=== PATIENT | female | born 1945 | race Caucasian/White ===

== ENCOUNTER 2024-07-30 14:05 | Emergency (ER) | payer OTHER, SELFPAY ==
[2024-07-30 14:15] VITALS: BP 145/96
[2024-07-30 14:37] LABS: % Basophils 0.3 % (0-2); % Immature Granulocytes 0.4 % (0-0.5); % Lymphocytes 31.4 % (20.5-51.1); % Monocytes 9.6 % (1.7-9.3); % Neutrophils 57.3 % (42.2-75.2); Absolute Eosinophils 0.1 10^3/uL (0-0.7); Absolute Lymphocytes 2.4 10^3/uL (1.2-3.4); Absolute Monocytes 0.7 10^3/uL (0.1-0.6); Absolute Neutrophils 4.4 10^3/uL (1.4-6.5); Hematocrit 41.5 % (37.0-47.0); Hemoglobin 13.8 g/dL (12.0-16.0); Mean Corp Hgb Conc. 33.3 g/dL (33.0-37.0); Mean Corpuscular Hgb 30.2 pg (27.0-31.0); Mean Corpuscular Volume 90.8 fL (81.0-99.0); Mean Platelet Volume 11.1 fL (7.4-10.4); Nucleated Red Blood Cells % 0 %; Platelet Count 135 10^3/uL (130-400); Red Blood Cell Count 4.57 10^6/uL (4.20-5.40); White Blood Cell Count 7.6 10^3/uL (4.8-10.8)
[2024-07-30 15:11] LABS: Blood Urea Nitrogen 18 mg/dl (7-17); Calcium 9.9 mg/dl (8.4-10.2); Carbon Dioxide 26 mmol/L (22-30); Chloride 99 mmol/L (98-107); Glucose 102 mg/dl (70-99); Lipase 238 U/L (23-300); Sodium 134 mmol/L (135-145); eGFR > 60.00
--- NOTE | 2024-07-30 16:35 | ED.GENMED ---
History of Present Illness
General
Chief Complaint: Abdominal Symptoms
Source: patient
Exam Limitations: none
Time Seen by Provider: 07/30/24 16:14
Nursing documentation reviewed up to this point in time: agreed with
History of Present Illness
History of Present Illness:
Patient to ED with complaint of lower abd. pain and cramping. States symptoms started approx 3 weeks ago intermittently but has become steady and worse. Denies fever/chills. No n/v. +diararhea. Brought self to ED for eval
Past History
Past History
ED Past Medical History: Arrthythmia (afib), HTN and Hypothyroidism
ED Past Surgical History: Appendectomy and Orthopedic
Social History
Tobacco: Non-smoker
Review of Systems
Review of Systems
Allergies reviewed?: Yes
All Other Systems: ROS reviewed and negative except as documented in HPI and ROS
Constitutional: Reports no symptoms
EENT: Reports no symptoms
Respiratory: Reports no symptoms
Cardiac: Reports no symptoms
ABD/GI: Reports abdominal pain (lower abd. pain and cramping, ) and diarrhea
: Reports no symptoms
Musculoskeletal: Reports no symptoms
Skin: Reports no symptoms
Neurological: Reports no symptoms
Psychiatric: Reports no symptoms
Phy Exam
General Physical Exam
General Presentation: well appearing and no apparent distress
General age: appears stated age
General Skin: warm and dry
General Habitus: normal
General Mental: alert
Cardiovascular Exam
Cardiovascular Exam: regular rate/rhythm and no edema
Gastrointestinal Exam
Gastrointestinal Exam: normal bowel sounds, soft, no organomegaly, no pulsatile mass and non distended
Palpation: generalized: Moderate tenderness
Musculoskeletal Exam
Musculoskeletal Exam: full ROM
Skin Exam
Skin Exam: normal color, warm/dry and no rash
Psychiatric Exam
Psychiatric Exam: normal mood/affect
Course
Orders/Labs/Results
Orders:
Orders
07/30/24 14:26
Basic Metabolic Panel Urgent
Complete Blood Count/With Diff Urgent
Lipase Urgent
07/30/24 16:35
CT Abd/pel W Iv And Oral Contr Urgent
Comment:
Reason For Exam: lower abd. pain
Iohexol [Omnipaque] See Protocol PO NOW STA
Abnormal Lab Results
07/30/24
14:26
MPV 11.1 H fL
(7.4-10.4)
Absolute Monos (auto) 0.7 H 10^3/uL
(0.1-0.6)
Monocytes % 9.6 H %
(1.7-9.3)
Sodium 134 L mmol/L
(135-145)
BUN 18 H mg/dl
(7-17)
Glucose 102 H mg/dl
(70-99)
07/30/24 14:26
07/30/24 14:26
Vital Signs
Initial and Last Documented VS:
Initial Vital Signs
Temp Pulse Resp BP Pulse Ox
97.6 F 91 16 145/96 98
07/30/24 14:15 07/30/24 14:15 07/30/24 14:15 07/30/24 14:15 07/30/24 14:15
Last Documented Vital Signs
Temp Pulse Resp BP Pulse Ox
97.6 F 94 15 162/88 99
07/30/24 19:18 07/30/24 21:19 07/30/24 21:19 07/30/24 21:19 07/30/24 21:19
*Radiology
Radiology exam reviewed: radiology read reviewed
*Pulse Oximetry
Patient hypoxic: no
*Critical Care Note
Total Time (30-74mins, 75-104mins- exclusive of procedures): Not Applicable
ED Attending Note
-
Portions of this chart may have been created with voice recognition software.� Occasional wrong word or��sound alike� substitutions may have occurred due to the inherent limitations of voice recognition software.
Discharge Plan
Departure
Patient Disposition: Home (Routine Discharge)
Date of Disposition: 07/30/24
Time of Disposition: 20:30
Patient with high blood pressure during this ER visit?: No
Condition: Good
Covid-19: Not Applicable
Discharge Problem:
Abdominal pain
Instructions: Abdominal Pain
Prescriptions:
No Action
losartan 50 MG tablet
50 mg PO DAILY
metoprolol tartrate 100 MG tablet
100 mg PO DAILY
levothyroxine 25 MCG tablet
25 mcg PO DAILY
digoxin [Digox] 125 MCG tablet
125 mcg PO MOWEFR
apixaban [Eliquis] 5 MG tablet
5 mg PO BID
multivitamin 1 EACH tablet
1 ea PO DAILY
docosahexaenoic acid-epa 1 CAP capsule
1 cap PO DAILY
Magnesium
1 dose PO DAILY
Vitamin C:
1 tab PO DAILY
Vitamin D3 (cholecalciferol):
1 tab PO DAILY
Zinc
1 tab PO DAILY
Referrals:
Masoud Wu MD [Active] - Next open appointment
Jennifer Bhat MD [Family Provider] -
Activity Restrictions/Additional Instructions:
Return to the emergency department immediately for any changes in/worsening of your symptoms
Interventions
Interventions:
*Risk Screen - Suicide Last Done: 07/30/24 14:15
*Neglect/Abuse Screening Last Done: 07/30/24 14:15
*Nursing Disposition Last Done: 07/30/24 21:20
BG-Hlnwta-Bfxqjwwren Assessment Last Done: 07/30/24 16:03
Discharge Date and Time
Discharge Date/Time: 07/30/24 21:21
Print Language: VIET[place]ESE
[2024-07-30] MEDS: OMNIPAQUE 50 ML PO (17:00)
[2024-07-30 19:18] VITALS: BP 160/87
[2024-07-30 21:19] VITALS: BP 162/88
== END 2024-07-30 21:21 | disposition home or self-care (01) ==
LOC: EMR 14:05
PROVIDERS: Student in an Organized Health Care Education/Training Program; EMERGENCY PHYSICIAN Emergency Medicine; FAMILY PHYSICIAN Internal Medicine
DX: R10.30 Lower abdominal pain, unspecified (principal); I10 Essential (primary) hypertension; E03.9 Hypothyroidism, unspecified
CPT/HCPCS: 99285; 74177; 80048; 83690; 85025; Q9967

== ENCOUNTER 2025-03-10 22:29 | Emergency (ER) | payer OTHER, SELFPAY ==
[2025-03-10 22:32] VITALS: BP 157/89
[2025-03-10 23:01] VITALS: BMI 26.6
--- NOTE | 2025-03-10 23:21 | ED.GENMED ---
History of Present Illness
General
Chief Complaint: Nose Bleed
Source: patient and family
Exam Limitations: none
Time Seen by Provider: 03/10/25 23:04
Nursing documentation reviewed up to this point in time: agreed with
History of Present Illness
History of Present Illness:
80-year-old female presenting to the emergency department concerns of right sided nostril nosebleed started about 2 hours ago when she was picking her nose. Denies any additional symptoms. Not currently on blood thinners. Was previously on
Eliquis up until a few months ago.
Past History
Past History
ED Past Medical History: Arrthythmia (afib), HTN and Hypothyroidism
ED Past Surgical History: Appendectomy and Orthopedic
Social History
Tobacco: Non-smoker
Review of Systems
Review of Systems
Allergies reviewed?: Yes
All Other Systems: ROS reviewed and negative except as documented in HPI and ROS
Phy Exam
Physical Exam
Physical Exam:
GENERAL: Alert , in no apparent distress
EYE: pupils equal and reactive
NECK: Supple, no significant adenopathy.
ENT: Slow bleed from the right-sided nasal septum. Small amount of blood in the posterior pharynx as well. o/p clr, mmm.
CARDIAC: Regular rate and rhythm .
LUNGS: Clear breath sounds bilaterally, no acute respiratory distress, no wheezes/rales/rhonchi
ABDOMEN: Soft, without focal tenderness, no r/g, no cvat
NEUROLOGICAL: Alert and oriented, no focal neuro deficits
SKIN: Warm and dry, skin intact.
MUSCULOSKELETAL: No edema, well perfused.
PSYCH: Normal and appropriate interaction.
Course
Vital Signs
Initial and Last Documented VS:
Initial Vital Signs
Temp Pulse Resp BP Pulse Ox
98.2 F 85 15 157/89 100
03/10/25 22:32 03/10/25 22:32 03/10/25 22:32 03/10/25 22:32 03/10/25 22:32
Last Documented Vital Signs
Temp Pulse Resp BP Pulse Ox
98.2 F 85 15 157/89 100
03/10/25 22:32 03/10/25 22:32 03/10/25 22:32 03/10/25 22:32 03/10/25 23:23
Procedures
Nosebleed
Drug treatment: Lidocaine and Epinephrine
Treatment: local pressure applied, Silver nitrate cautery and Merocel packing
Post treatment bleeding: other (Patient had ongoing bleeding despite silver nitrate. She was then packed by Merocel packing which control bleeding well.)
MDM/Problems Addressed
MDM/Problems Addressed:
80-year-old female presenting to the emergency department today with concerns of 2 hours of right sided nosebleed. An anterior nosebleed to the right side was identified. Lidocaine and epinephrine was applied to the area. Bleeding controlled at
that point silver nitrate was attempted but then bleeding recurred. Merisel packing was then placed which control bleeding well. Will follow-up closely with your ENT doctor. Return precautions given.
*Pulse Oximetry
SaO2: 100
Oxygen Mode of Delivery: Room air
Patient hypoxic: no (100)
*Critical Care Note
Total Time (30-74mins, 75-104mins- exclusive of procedures): Not Applicable
ED Attending Note
-
Portions of this chart may have been created with voice recognition software.� Occasional wrong word or��sound alike� substitutions may have occurred due to the inherent limitations of voice recognition software.
Discharge Plan
Departure
Patient Disposition: Home (Routine Discharge)
Date of Disposition: 03/11/25
Time of Disposition: 00:18
Patient with high blood pressure during this ER visit?: No
Condition: Good
Covid-19: Not Applicable
Discharge Problem:
Acute anterior epistaxis
Instructions: Nosebleeds (DC)
Prescriptions:
No Action
losartan 50 MG tablet
50 mg PO DAILY
metoprolol tartrate 100 MG tablet
100 mg PO DAILY
levothyroxine 25 MCG tablet
25 mcg PO DAILY
digoxin [Digox] 125 MCG tablet
125 mcg PO MOWEFR
apixaban [Eliquis] 5 MG tablet
5 mg PO BID
multivitamin 1 EACH tablet
1 ea PO DAILY
docosahexaenoic acid-epa 1 CAP capsule
1 cap PO DAILY
Magnesium
1 dose PO DAILY
Vitamin C:
1 tab PO DAILY
Vitamin D3 (cholecalciferol):
1 tab PO DAILY
Zinc
1 tab PO DAILY
Referrals:
Antelmo Long MD [Active, Otology]
Jennifer Bhat MD [Family Provider, Internal Medicine]
Activity Restrictions/Additional Instructions:
You came to the emergency department today with concerns of a nosebleed from your right nostril. Please leave the packing in place and follow-up with the nose doctor in 2 to 3 days. Return for any worsening, new or concerning symptoms.
Interventions
Interventions:
*Risk Screen - Suicide Last Done: 03/10/25 22:32
*General Assessment Last Done: 03/10/25 22:32
*Neglect/Abuse Screening Last Done: 03/10/25 22:32
*ED- Fall Risk Assessment Last Done: 03/10/25 23:01
*ED COVID-19 Vaccine History Last Done: 03/10/25 23:01
ED-EENT Assessment Last Done: 03/10/25 23:01
Discharge Date and Time
Print Language: TAMAZIGHT
[2025-03-11 00:33] VITALS: BP 152/98
== END 2025-03-11 00:35 | disposition home or self-care (01) ==
LOC: EMR 22:29
PROVIDERS: EMERGENCY PHYSICIAN Student in an Organized Health Care Education/Training Program; FAMILY PHYSICIAN Internal Medicine
DX: R04.0 Epistaxis (principal); E03.9 Hypothyroidism, unspecified; I48.91 Unspecified atrial fibrillation; I10 Essential (primary) hypertension; Z79.01 Long term (current) use of anticoagulants; Z90.49 Acquired absence of other specified parts of digestive tract
CPT/HCPCS: 99282; 30901

== ENCOUNTER 2025-03-15 03:40 | Emergency (ER) | payer OTHER, SELFPAY ==
--- NOTE | 2025-03-15 06:37 | ED.GENMED ---
History of Present Illness
General
Chief Complaint: Nose Bleed
Source: patient
Exam Limitations: none
Time Seen by Provider: 03/15/25 06:08
Nursing documentation reviewed up to this point in time: agreed with
History of Present Illness
History of Present Illness:
Patient is an 8-year-old female who presents to the ER for evaluation of nosebleed. Patient was seen here March 10 and had Mericel. She went to ENT yesterday they did remove the packing. She tried to apply some castor oil with a Q-tip because her
nose was dry and started bleeding again around 2 AM. She is supposed to be on Eliquis for A-fib. Her fine unhairer is in the [facility] however she stopped it because of the cost.
She denies any trauma headache blurry vision dizziness lightheadedness. Denies any recent fever chills or illness.
Past History
Past History
ED Past Medical History: Arrthythmia (afib), HTN and Hypothyroidism
ED Past Surgical History: Appendectomy and Orthopedic
Social History
Tobacco: Non-smoker
Phy Exam
General Physical Exam
General Presentation: no apparent distress
General age: appears stated age
General Skin: warm and dry
General Habitus: elderly
General Mental: alert
General Hydration: appears well hydrated
ENT Exam
ENT Exam: other ( + dried blood in right nares)
Cardiovascular Exam
Cardiovascular Exam: irregularly irregular
Pulmonary Exam
Pulmonary Exam: lungs clear and no respiratory distress
Neurological Exam
Neurological Exam: alert and oriented x3
Musculoskeletal Exam
Musculoskeletal Exam: full ROM
Skin Exam
Skin Exam: normal color and warm/dry
Psychiatric Exam
Psychiatric Exam: normal mood/affect
Course
Orders/Labs/Results
Orders:
Orders
03/15/25 04:51
Tranexamic Acid 1,000 mg .ROUTE .STK-MED ONE
Vital Signs
Initial and Last Documented VS:
Initial Vital Signs
Pulse Resp Pulse Ox
96 20 94
03/15/25 04:35 03/15/25 04:35 03/15/25 04:35
Last Documented Vital Signs
Pulse Resp BP Pulse Ox
72 15 120/61 95
03/15/25 07:00 03/15/25 07:00 03/15/25 07:00 03/15/25 07:00
Procedures
Nosebleed
Drug treatment: Neosynephrine
Treatment: other (Rapid Rhino)
Post treatment bleeding: none- good control
MDM/Problems Addressed
Differential Diagnosis Includes:
Not limited to epistaxis
MDM/Problems Addressed:
As documented patient is an 8-year-old female who was seen here on March 10 had a nosebleed had nasal packing removed by ENT yesterday but started bleeding again around 2 AM. This bleeding occurred after she put a Q-tip in her nose and try to
moisturize her nose with castor oil. Upon exam she had dried blood however after exam patient started bleeding with clotting. 4 point centimeter rapid Rhino was placed patient tolerated procedure well.
She is well-appearing she denies any lightheaded dizziness.
Will continue to monitor patient is supposed to on Eliquis for A-fib but stopped it because of the cost back in August. She is concerned that she is no longer on Eliquis and we did discuss risk of stroke. We initially talked about case management
however case management is not coming in for a while patient would like to go home. Patient was given a 30-day free trial of Eliquis coupon I did speak with pharmacy and instruct patient to call the [facility] as well. Because she has not
taken since August and has had 2 nosebleeds will have her hold off on restarting until seen by ENT in 2 days. I did however review the risks of not taking Eliquis with A-fib including stroke
Patient remained well-appearing with rapid Rhino in place with no further bleeding stable for discharge home. Family at bedside.
Chronic conditions affecting care:
afib( stopped Eliquis Aug 2024)
*Pulse Oximetry
SaO2: 95
Patient hypoxic: no
*Critical Care Note
Total Time (30-74mins, 75-104mins- exclusive of procedures): Not Applicable
Data Reviewed
Review of Other/Old Records Reveals: Other (previous ED visit )
Source: patient
ED Attending Note
-
Portions of this chart may have been created with voice recognition software.� Occasional wrong word or��sound alike� substitutions may have occurred due to the inherent limitations of voice recognition software.
Discharge Plan
Departure
Patient Disposition: Home (Routine Discharge)
Date of Disposition: 03/15/25
Time of Disposition: 07:48
Patient with high blood pressure during this ER visit?: No
Condition: Fair
Covid-19: Not Applicable
Discharge Problem:
Epistaxis
Instructions: Nosebleeds (DC)
Prescriptions:
No Action
losartan 50 MG tablet
50 mg PO DAILY
metoprolol tartrate 100 MG tablet
100 mg PO DAILY
levothyroxine 25 MCG tablet
25 mcg PO DAILY
digoxin [Digox] 125 MCG tablet
125 mcg PO MOWEFR
apixaban [Eliquis] 5 MG tablet
5 mg PO BID
multivitamin 1 EACH tablet
1 ea PO DAILY
docosahexaenoic acid-epa 1 CAP capsule
1 cap PO DAILY
Magnesium
1 dose PO DAILY
Vitamin C:
1 tab PO DAILY
Vitamin D3 (cholecalciferol):
1 tab PO DAILY
Zinc
1 tab PO DAILY
Referrals:
Antelmo Long MD [Active, Otology]
Jennifer Bhat MD [Family Provider, Internal Medicine]
Activity Restrictions/Additional Instructions:
As discussed keep packing in place in the next 2 days until seen and evaluated by ENT. Please call today to schedule appointment for for packing removal.
You were given a 30-day free supply coupon for Eliquis however with recent nosebleed and since you have not taken till August restart after speaking with ENT. Return if any worsening of symptoms
Interventions
Interventions:
*Risk Screen - Suicide Last Done: 03/15/25 03:44
*General Assessment Last Done: 03/15/25 03:44
*Neglect/Abuse Screening Last Done: 03/15/25 03:44
*ED- Fall Risk Assessment Last Done: 03/15/25 03:44
*ED COVID-19 Vaccine History Last Done: 03/15/25 03:44
ED-EENT Assessment Last Done: 03/15/25 05:15
Discharge Date and Time
Print Language: [place]ET[place]ESE
[2025-03-15 06:38] VITALS: BP 110/60
[2025-03-15 07:00] VITALS: BP 120/61
== END 2025-03-15 08:07 | disposition home or self-care (01) ==
LOC: EMR 03:40
PROVIDERS: EMERGENCY PHYSICIAN Emergency Medicine; FAMILY PHYSICIAN Internal Medicine
DX: R04.0 Epistaxis (principal); I48.91 Unspecified atrial fibrillation; I10 Essential (primary) hypertension; E03.9 Hypothyroidism, unspecified; F41.9 Anxiety disorder, unspecified; M19.90 Unspecified osteoarthritis, unspecified site; Z96.643 Presence of artificial hip joint, bilateral; Z91.018 Allergy to other foods; Z91.048 Other nonmedicinal substance allergy status
CPT/HCPCS: 99283; 30901

== ENCOUNTER 2025-07-08 01:46 | Inpatient (IN) | payer OTHER, SELFPAY ==
[2025-07-07] VITALS (9 sets, daily range): BP systolic 133–173; BP diastolic 96–139
[2025-07-07 19:35] LABS: Hematocrit 38.0 % (37.0-47.0); Hemoglobin 12.9 g/dL (12.0-16.0); Mean Corp Hgb Conc. 33.9 g/dL (33.0-37.0); Mean Corpuscular Volume 82.8 fL (81.0-99.0); Nucleated Red Blood Cells % 0 %; Platelet Count 163 10^3/uL (130-400); Red Cell Dist. Width 13.4 % (11.5-14.5)
[2025-07-07 19:59] LABS: ALT (SGPT) 17 U/L (0-35); AST (SGOT) 21 U/L (14-36); Albumin 4.3 g/dl (3.5-5.0); Alkaline Phosphatase 91 U/L (38-126); Blood Urea Nitrogen 15 mg/dl (7-17); Calcium 9.5 mg/dl (8.4-10.2); Carbon Dioxide 24 mmol/L (22-30); Chloride 95 mmol/L (98-107); Glucose 146 mg/dl (70-99); Potassium 4.9 mmol/L (3.5-5.1); Sodium 128 mmol/L (135-145); Total Protein 7.5 g/dl (6.3-8.2); eGFR > 60.00
--- NOTE | 2025-07-07 20:00 | EDRN ---
Patient ambulated to the restroom and back in bed, ambulated without difficulty.
[2025-07-07 20:13] LABS: Troponin I 0.075 ng/ml
[2025-07-07 20:23] LABS: Urine Character Clear (Clear)
[2025-07-07 20:33] LABS: Urine Squamous Cell >30 /LPF (Few)
[2025-07-07 22:40] LABS: Troponin I 0.289 ng/ml
--- NOTE | 2025-07-07 23:07 | EDRN ---
Dr. Larkin at bedside talking with patient and family about results and a plan
--- NOTE | 2025-07-07 23:13 | ED.GENMED ---
History of Present Illness
General
Chief Complaint: Dizziness
Source: patient and family
Exam Limitations: none
Time Seen by Provider: 07/07/25 19:01
History of Present Illness
History of Present Illness:
Note:
CHIEF COMPLAINT(S)
Feeling unstable and off balance.
HISTORY OF PRESENT ILLNESS
The patient is an 80-year-old female with a history of atrial fibrillation (AFib), hypertension, and thyroid disorder (hypothyroidism, evidenced by elevated thyroid-stimulating hormone levels) who presented with a sensation of being off balance,
described as if she were intoxicated, although she had not consumed alcohol. This symptom began around 1:00 PM and had never been experienced before by the patient. The patient states she then took her blood pressure at home and it was noted to be
elevated. The patient's daughter states that the blood pressure at home was at one point 200/100. she reports a previous history of elevated blood pressure and recent fluctuations in her thyroid medication. The patient has felt heart palpitations
and is aware of having a leaking heart valve, although the specific valve was not identified. She is currently in atrial fibrillation. She also reported experiencing a fever peaking at 101�F on Friday with upper respiratory infection symptoms that
have resolved. She has had no recent headaches, chest pain, weakness, or urinary symptoms. She denies shortness of breath. She does report feeling clammy in her hands
PAST MEDICAL AND SURGICAL HISTORY
- Atrial fibrillation
- Hypertension
- Hypothyroidism
CHRONIC MEDICAL CONDITIONS SIGNIFICANTLY AFFECTING CARE
- Atrial fibrillation
- Hypertension
- Hypothyroidism
MEDICATIONS
- Thyroid medication (with recent adjustments)
- Losartan for blood pressure
- Sotalol
REVIEW OF SYSTEMS
- Cardiovascular: Reports feeling of heart palpitations, currently in atrial fibrillation.
- Neurological: Reports a sensation of being off balance.
- Constitutional: Reported fever recently, with a temperature of 101�F on Friday.
- Genitourinary: No urinary complaints.
PHYSICAL EXAM
General: Alert, no acute distress.
Skin: Warm, dry.
Head: Normocephalic, atraumatic.
Neck: Supple, trachea midline.
Eye, Ears, Nose, Mouth, and Throat: Oral mucosa moist. Pupils equal, round, and reactive to light.
Cardiovascular: Irregularly irregular heart rhythm at a rate of 80 bpm. Blood pressure 169/106 mmHg.
Respiratory: Respirations are non-labored.
Gastrointestinal: Abdomen nondistended.
Back: Normal range of motion, normal alignment.
Musculoskeletal: Normal range of motion, normal strength. General motor function and coordination normal as evidenced by [id number] and rqwe-hh-[id number] tests. No pronator drift noted.
Neurological: Alert and oriented to person, place, time, and situation.
Psychiatric: Cooperative, appropriate mood and affect.
PLAN
- Check laboratory tests including a complete metabolic panel, cardiac enzymes, and thyroid function tests.
- Urinalysis to rule out infection.
- Imaging including chest X-ray and head CT scan to rule out pulmonary and neurological causes.
- Monitor blood pressure frequently, approximately every 15 to 30 minutes, and manage as needed.
- Re-evaluate after lab and imaging results.
DIFFERENTIAL DIAGNOSIS
The Differential Diagnosis includes, in no particular order and is not limited to:
- Cerebrovascular accident (stroke)
- Transient ischemic attack
-Hypertensive emergency
-Rapid A-fib
- Labyrinthitis
- Vestibular neuritis
- Hypertensive encephalopathy
- Thyrotoxicosis
- Electrolyte imbalance
- Cardiac arrhythmia-related dizziness
- Acute infection leading to fever and disorientation
- Medication side effect
CARE-UPDATE
07/07/25 - 23:14
Patient reports feeling more at ease, with no chest pain or discomfort noted. Initial troponin levels showed elevation from 0.075 to 0.289. EKG remains stable with no indication of myocardial infarction by EKG despite elevated troponin levels. Blood
pressure was elevated during the discussion, initially and now at 133/97. Plan includes monitoring of serial troponin levels, blood pressure management, and administration of full-dose aspirin for precautionary measures. Consideration for further
cardiovascular evaluation, potentially including echocardiography.. Discussion addressed the patients anxiety regarding the situation, ensuring continued reassurance and explaining that current elevated markers dont equate to acute coronary syndrome
without corresponding clinical symptoms.
Disposition:
SUMMARY OF ENCOUNTER
The patient, an 80-year-old female with a history of atrial fibrillation, presented with a sensation of being unstable. Upon reassessment, she denied chest or back pain. She experienced a viral syndrome earlier in the week and reported elevated
blood pressure at home, though the duration was unclear. Emergency department workup showed a normal complete blood count, mild hyponatremia at 128, and elevated troponin levels with an initial measurement of 0.075 rising to 0.289 after three hours.
She is no longer taking digoxin. Despite these findings, she continued to deny experiencing chest pain. Differential considerations include atypical acute coronary syndrome symptoms, rapid atrial fibrillation episodes, or uncontrolled
hypertension. Aspirin was administered, and the patient was treated with intravenous metoprolol to manage blood pressure spikes.
Bedside ultrasound shows no pericardial effusion
PLAN
Continue trending troponin levels and conduct cardiology evaluation. The patients management includes administration of a single dose of aspirin and intravenous labetalol for blood pressure management.
INDEPENDENT REVIEW OF LABS AND INTERPRETATION OF TESTS
My independent review of the complete blood count is normal. My independent review indicates mild hyponatremia with a sodium level of 128. My independent review shows elevated troponin levels, initially 0.075, rising to 0.289 after three hours. My
independent review of EKG indicates no ischemia.
MEDICATION RECONCILIATION
Administered aspirin and intravenous labetalol in the emergency department.
MEDICAL DECISION MAKING
- Number and Complexity of Problems Addressed: Chronic conditions affecting care are atrial fibrillation, hypertension, and hypothyroidism. Differential diagnosis includes cerebrovascular accident (stroke), transient ischemic attack, labyrinthitis,
vestibular neuritis, hypertensive encephalopathy, thyrotoxicosis, electrolyte imbalance, cardiac arrhythmia-related dizziness, acute infection leading to fever and disorientation, medication side effect.
- Data:
- Category 1: Tests reviewed include a complete blood count, sodium level, and troponin levels. My independent interpretation of the repeat EKG shows no ischemia.
- Category 3: Discussion of management included cardiology evaluation.
- Risk: Prescription medication was prescribed: aspirin and labetalol for BP management.
DIAGNOSIS
- Atrial fibrillation, unspecified (I48.91)
- Primary hypertension (I10)
- Hypothyroidism, unspecified (E03.9)
- Elevated troponin levels, unspecified (R74.8)
- Mild hyponatremia (E87.1)
Past History
Past History
ED Past Medical History: Arrthythmia (afib), HTN and Hypothyroidism
ED Past Surgical History: Appendectomy and Orthopedic
Social History
Tobacco: Non-smoker
Phy Exam
Physical Exam
Physical Exam:
.
Course
Orders/Labs/Results
Orders:
Orders
07/07/25 19:02
Electrocardiogram (*1) Urgent
Reason for Study: Fatigue / Weakness
EKG- Treatment ONCE
07/07/25 19:19
Complete Blood Count/With Diff Urgent
Comprehensive Metabolic Panel Urgent
Digoxin Urgent
Comment: ADD ON
Troponin I Urgent
07/07/25 19:30
CT Head W/o Iv Contrast Urgent
Comment:
Reason For Exam: dizziness, on eliquis
CR Chest - 2 Views Urgent
Comment:
Reason For Exam: dizziness, recent fever
07/07/25 20:15
Urinalysis Reflex To Culture Urgent
Date Specimen was Collected: 07/07/25
Time Specimen was Collected: 20:13
Urine Microscopic Reflex Cult Urgent
Urine Culture Urgent
ANDREA Source: U
Specimen Description:
Date Specimen was Collected: 07/07/25
Time Specimen was Collected: 20:13
07/07/25 21:50
NT-proBNP Urgent
Comment: ADD ON
Troponin I Urgent
07/07/25 22:28
Add On- LAB Urgent
Tests Added?: dig level
07/07/25 22:45
Electrocardiogram (*1) Urgent
Reason for Study: Fatigue / Weakness
EKG- Treatment ONCE
07/07/25 23:13
Aspirin 325 mg PO NOW STA
Metoprolol [Lopressor] 5 mg IV NOW STA
07/07/25 23:28
Add On- LAB Urgent
Tests Added?: bnp
Abnormal Lab Results
07/07/25 07/07/25 07/07/25
19:19 20:15 21:50
Absolute Monos (auto) 0.7 H 10^3/uL
(0.1-0.6)
Sodium 128 L mmol/L
(135-145)
Chloride 95 L mmol/L
(98-107)
Glucose 146 H mg/dl
(70-99)
Troponin I 0.075 H* ng/ml 0.289 H* D ng/ml
Leukocyte Esterase Rfl 1+ A
(Negative)
Urine RBC 3-6 A /HPF
(0-2)
Urine Bacteria (Reflex) Many A
(Negative)
Urine Albumin (Reflex) 1+ A
(Neg - Trace)
Digoxin < 0.4 L ng/ml
(0.8-2.0)
07/07/25 19:19
07/07/25 19:19
Vital Signs
Initial and Last Documented VS:
Initial Vital Signs
Temp Pulse Resp BP Pulse Ox
97.4 F 86 18 173/107 100
07/07/25 18:45 07/07/25 18:45 07/07/25 18:45 07/07/25 18:45 07/07/25 18:45
Last Documented Vital Signs
Temp Pulse Resp BP Pulse Ox
97.4 F 83 15 143/91 94
07/07/25 18:45 07/08/25 00:00 07/08/25 00:00 07/08/25 00:00 07/08/25 00:00
*Pulse Oximetry
SaO2: 94
Oxygen Mode of Delivery: Room air
Patient hypoxic: no
*Critical Care Note
Total Time (30-74mins, 75-104mins- exclusive of procedures): Not Applicable
Update Note
Update Note:
Blood pressure improved. Continue to monitor
ED Attending Note
-
Portions of this chart may have been created with voice recognition software.� Occasional wrong word or��sound alike� substitutions may have occurred due to the inherent limitations of voice recognition software.
Discharge Plan
Departure
Patient Disposition: Admit
Date of Disposition: 07/07/25
Time of Disposition: 23:19
Admit to: Telemetry
Presentation/result/management discussed w/ accepting MD/DO: Hospitalist
Discharge Problem:
Elevated troponin, Uncontrolled hypertension, Atrial fibrillation
Prescriptions:
No Action
losartan 50 MG tablet
100 mg PO DAILY
metoprolol tartrate 100 MG tablet
100 mg PO DAILY
levothyroxine 25 MCG tablet
25 mcg PO DAILY
Eliquis 5 MG tablet
5 mg PO BID
multivitamin 1 EACH tablet
1 ea PO DAILY
Magnesium
1 dose PO DAILY
Vitamin C:
1 tab PO DAILY
Vitamin D3 (cholecalciferol):
1 tab PO DAILY
Zinc
1 tab PO DAILY
biotin 5 mg Tablet
5 mg PO DAILY
Referrals:
Jennifer Bhat MD [Family Provider, Internal Medicine]
Interventions
Interventions:
*Risk Screen - Suicide Last Done: 07/07/25 18:45
*General Assessment Last Done: 07/07/25 18:45
*ED COVID-19 Vaccine History Last Done: 07/07/25 18:45
*ED Influenza Vaccine History Last Done: 07/07/25 18:45
ED- Neurological Assessment Last Done: 07/07/25 19:30
ED- Cardiac Assessment Last Done: 07/07/25 19:30
ED Swallowing Screen Last Done: 07/07/25 22:11
Discharge Date and Time
Print Language: HUNGARIAN
[2025-07-07 23:14] LABS: Digoxin < 0.4 ng/ml (0.8-2.0)
[2025-07-07] MEDS: ASPIRIN 325 MG PO (23:22)
[2025-07-07] MEDS: LOPRESSOR 5 MG IV (23:22)
[2025-07-08] VITALS (9 sets, daily range): BP systolic 93–168; BP diastolic 46–106; BMI 25.9
--- NOTE | 2025-07-08 01:10 | HPS.HSE ---
Family Physician
-
Family Physician: Jennifer Bhat MD
Chief Complaint
-
Unsteady, Elevated BP
History of Present Illness
Patient is an 80y F with PMH significant for A-Fib, hypertension and hypothyroidism who presents to ED complaining of dizziness / unsteadiness and elevated BP. Patient states that she developed sense of unsteady gait / feeling lightheaded around
1 PM today. She checked her BP and noted that it was very high (> 180 systolic) at home. Patient also reported 'heavy' or 'pounding' heartbeat. She denies any chest pain or pressure. She denies any SOB. With persistent lightheaded sensation and
persistent BP elevation, patient presented to the ED for further evaluation.
In the ED, patient was initially quite hypertensive with BP = 170/100. She is in A-Fib with controlled ventricular rates.
Patient states that she felt ill starting one week ago. She describes shaking chills at that time with temperature at home to 101. She slept for most of the weekend and only began to feel better over the past 2 days.
Mild cough. No sore throat. No GI or complaints. No known sick contacts.
Medical History
Past Medical History
Past Medical History: Reports Other
Additional Past Medical History:
Permanent Atrial Fibrillation
Hypertension
Chronic Sinusitis
Varicose Veins
Hypothyroidism
Past Surgical History: Reports Other
Additional Past Surgical History:
Appendectomy
Sinus Surgery
Hip Hemiarthroplasty
Social History
Tobacco: Non-smoker
Alcohol: None
Drug: None
Family History
Family History: Not pertinent
Allergies / Home Medications
Allergies reflects when Allergies were last updated in [facility].
Home Medications with original date entered in [facility]
Allergy/Medication List:
Allergies
Allergy/AdvReac Type Severity Reaction Status Date / Time
honey Allergy Swelling Verified 07/07/25 18:49
peach Allergy abdominal Verified 07/07/25 18:49
pain
pollen extracts Allergy congestion Verified 07/07/25 18:49
Home Medications
Magnesium 1 dose PO DAILY 10/25/21
Vitamin C: 1 tab PO DAILY 10/25/21
Vitamin D3 (cholecalciferol): 1 tab PO DAILY 10/25/21
Zinc 1 tab PO DAILY 10/25/21
apixaban 5 mg tablet (Eliquis) 5 mg PO BID 10/25/21
levothyroxine 25 mcg tablet 25 mcg PO DAILY 10/25/21
multivitamin 1 ea PO DAILY 10/25/21
biotin 5 mg tablet 5 mg PO DAILY 07/07/25
losartan 100 mg tablet 100 mg PO DAILY 07/08/25
metoprolol succinate 100 mg tablet,extended release 24 hr 100 mg PO HS 07/08/25
Review of Systems
-
History Source: Patient
A 12 point ROS was completed and negative except as noted: Yes
Constitutional: Reports Fatigue; Denies Fever or Chills
EENT: Denies Sore Throat
Respiratory: Denies Cough, Hemoptysis or Trouble Breathing
Cardiac: Reports Palpitations; Denies Chest Pain, Diaphoresis or Syncope
Abdomen/GI: Denies Abdominal Pain, Nausea, Vomiting or Diarrhea
: Denies Dysuria, Frequency or Flank Pain
Musculoskeletal: Reports Edema; Denies Joint Pain
Neurological: Reports Dizzy; Denies Headache, Weakness or Numbness
Psych: Denies Depression or Anxiety
Physical Exam
Vital Signs
Vital Signs
Temp Pulse Resp BP Pulse Ox
97.4 F 83 15 143/91 94
07/07/25 18:45 07/08/25 00:00 07/08/25 00:00 07/08/25 00:00 07/08/25 00:00
Physical Exam
General: Other (80y F in no acute distress.)
HEENT: Moist mucous membranes, PERRLA and Other (No JVD / HJR)
Respiratory: Other (Bilateral rales - all the way up on the L and about 1/3 on the R.)
Cardiac: S1/S2, Irregular Rhythm and Murmur (II/ MAYRA)
GI: Soft, Non Tender, Non Distended and Normal Bowel Sounds
Musculoskeletal: No Clubbing, No Cyanosis and Other (2+ pitting edema - LLE > RLE. Varicose veins.)
Neuro: AO x 3
Laboratory Results
-
07/07/25 19:19
07/07/25 19:19
Laboratory Results
Total Bilirubin 0.6 mg/dl (0.2-1.3) 07/07/25 19:19
AST 21 U/L (14-36) 07/07/25 19:19
ALT 17 U/L (0-35) 07/07/25 19:19
Alkaline Phosphatase 91 U/L (38-126) 07/07/25 19:19
Troponin I 0.289 ng/ml H* D 07/07/25 21:50
Impression/Plan
-
A/P: Patient is an 80y F with PMH significant for A-Fib and hypertension who presents to ED complaining of palpitations, elevated BP and feeling off-balance.
Acute HF - Unknown Type
- Admit for further evaluation and treatment.
- Patient with bilateral rales, increased pulm vasculature on CXR and new / worse LE edema (per her).
- IV Lasix now and BID.
- Follow I/Os, daily weights, etc.
- Check Echo.
- Cardiology evaluation for additional recommendations.
- Follow for improvement in BP, symptoms, etc.
- Check COVID / flu status given recent febrile illness - presentation may also be consistent with viral pneumonia.
ACS / Abnormal Troponin
- Elevated troponin - ? secondary to CHF v ACS. Doubt related to A-Fib as this is rate-controlled at present.
- Begin IV heparin for now and follow troponin to peak.
- Follow for any new / worsening symptoms.
- Continue ASA daily. Add statin.
- Cardiology consulted as noted above.
Permanent Atrial Fibrillation
- Stable. Currently rate -controlled.
- Continue Toprol. Hold Eliquis and resume once heparin discontinued.
Benign Hypertension
- Uncontrolled at present - likely secondary to CHF.
- Follow for improvement with diuresis.
- Adjust medications as needed for adequate control.
Hyponatremia
- Acute on chronic according to prior labs.
- Suspect due to volume overload as noted above.
- Follow for improvement with diuresis.
- Fluid restriction when diet started.
Hypothyroidism
- Recent trial off of T4 supplementation. TSH elevated and levothyroxine was restarted.
- Continue T4. Update TFTs.
DVT Prophylaxis: IV heparin for now.
Code Status: Full
[2025-07-08] MEDS: LASIX 40 MG IV ×2 (01:28→08:21)
[2025-07-08 01:39] LABS: COVID-19 Antigen Negative (Negative)
[2025-07-08 02:07] LABS: APTT 37.1 Sec (23.4-35.0)
--- NOTE | 2025-07-08 02:36 | PTCARENOTE ---
Recieved pt. from ED. Pt. ambulated from the stretcher to the room. Pt. AAOx4. Pt. oriented to unit and call marshall placed within reach. Pt. care ongoing.
[2025-07-08 03:00] LABS: Hematocrit 41.0 % (37.0-47.0); Hemoglobin 13.8 g/dL (12.0-16.0); Mean Corp Hgb Conc. 33.7 g/dL (33.0-37.0); Mean Corpuscular Volume 83.5 fL (81.0-99.0); Platelet Count 185 10^3/uL (130-400); Red Cell Dist. Width 13.3 % (11.5-14.5)
[2025-07-08] MEDS: HEPARIN 25000 UNITS/250 ML IV (03:07)
[2025-07-08 03:14] LABS: Blood Urea Nitrogen 14 mg/dl (7-17); Calcium 9.8 mg/dl (8.4-10.2); Carbon Dioxide 25 mmol/L (22-30); Chloride 94 mmol/L (98-107); Estimated Creatinine Clearance 44 ml/min; Glucose 117 mg/dl (70-99); HDL Cholesterol 43 mg/dl; LDL Cholesterol, Calculated 116 mg/dl; Potassium 4.6 mmol/L (3.5-5.1); Sodium 128 mmol/L (135-145); Very Low Density Lipoprotein 14 mg/dl (0-30); eGFR > 60.00
[2025-07-08 03:38] LABS: Troponin I 0.546 ng/ml
[2025-07-08 03:40] LABS: APTT 36.6 Sec (23.4-35.0)
[2025-07-08] MEDS: SYNTHROID 25 MCG PO (05:29)
[2025-07-08] MEDS: COZAAR 100 MG PO (08:22)
[2025-07-08] MEDS: LOW STRENGTH ASPIRIN 81 MG PO (08:22)
[2025-07-08] MEDS: TOPROL XL 50 MG PO (08:22)
[2025-07-08 08:51] LABS: Glycohemoglobin (HgbA1c) 6.3 % (4.0-5.9)
[2025-07-08 08:58] LABS: APTT 87.1 Sec (23.4-35.0)
[2025-07-08 09:14] LABS: Troponin I 0.460 ng/ml
--- NOTE | 2025-07-08 09:46 | CON.CAR ---
Addendum entered and electronically signed by Juan Villafuerte MD 07/08/25 12:10:
I saw and examined the patient.
The Film Splicer's note was reviewed and I agree with the note.
Comment: Briefly, 80-year-old woman past medical history of heart failure with preserved ejection fraction and permanent atrial fibrillation who presents for evaluation of lightheadedness and dizziness. She was found to have severe range blood
pressures and elevated troponin in the ER and was admitted for further management.
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
Echo here shows moderate to severely reduced LV systolic function with EF 30%
Patient was not on standing diuretic as an outpatient
Plan for IV diuresis�follow renal function/electrolytes and daily weights
-Elevated troponin: Troponin trend 0.075�0.289�0.546�0.460
Not reporting any chest discomfort to me
ECG does not appear acutely ischemic
Would medically manage for presumed CAD with aspirin, high intensity statin, beta-darrel and heparin drip
Given newly reduced LVEF recommend invasive coronary angiography prior to discharge�tentatively Wednesday 07/11
-Atrial fibrillation: This is reportedly permanent
Continue metoprolol for rate control
Heparin for risk reduction of cardioembolic stroke
Given her initial presentation with dizziness would consider further workup for possible TIA/CVA -initial CT head within normal limits
Original Note:
Consultation
Consultation Request
Date/Time Consultation Requested: 07/08/2025
Date/Time Consultation Performed: 07/08/2025
Requesting Provider: Dr. Whitaker
Performing Provider: Sherry Lopez PA-C for Dr. Villafuerte
Reason for Consultation: Elevated troponin, CHF
Medical History
-
History of Present Illness:
HPI: Yoko is an 80 year old female with PMH of permanent atrial fibrillation, chronic HFpEF, hypertension, and hypothyroidism who presented to [facility] ER for evaluation after she had an episode of lightheadedness/unsteady gait earlier in the day. She
then noted pounding in her chest and checked her BP and it was significantly elevated. She came to ER for evaluation and was noted to be significantly hypertensive and possibly in some heart failure. In ER, troponin was mildly elevated at 0.75 and
trended up to 0.546. She has been chest pain free, but describes feeling as though her blood pressure is elevated with pounding in her chest. No shortness of breath, but does have some LE edema. No weakness/vision changes. Head CT without acute
intracranial abnormality. Chest xray showed evidence of increased venous pressures. In rate controlled atrial fibrillation on EKG. She was started on IV lasix and admitted for further workup and cardiology consulted for evaluation.
PMH:
Permanent atrial fibrillation
Chronic HFpEF
HTN
Hypothyroidism
Past Medical History
Past Medical History: Other (In [place])
Past Surgical History: Appendectomy and Orthopedic
Social History
Tobacco: Non-Smoker
Alcohol: None
Drug: None
Family History
Family History: Hypertension
Allergies / Home Medications
Allergy/AdvReac Type Severity Reaction Status Date / Time
honey Allergy Swelling Verified 07/07/25 18:49
peach Allergy abdominal Verified 07/07/25 18:49
pain
pollen extracts Allergy congestion Verified 07/07/25 18:49
�Medication �Instructions �Recorded �Confirmed �Type
Magnesium 1 dose PO DAILY 10/25/21 07/07/25 History
Vitamin C: 1 tab PO DAILY 10/25/21 07/07/25 History
Vitamin D3 (cholecalciferol): 1 tab PO DAILY 10/25/21 07/07/25 History
Zinc 1 tab PO DAILY 10/25/21 07/07/25 History
apixaban 5 mg tablet (Eliquis) 5 mg PO BID 10/25/21 07/07/25 History
levothyroxine 25 mcg tablet 25 mcg PO DAILY 10/25/21 07/07/25 History
multivitamin 1 ea PO DAILY 10/25/21 07/07/25 History
biotin 5 mg tablet 5 mg PO DAILY 07/07/25 07/07/25 History
losartan 100 mg tablet 100 mg PO DAILY 07/08/25 07/08/25 History
metoprolol succinate 100 mg 100 mg PO HS 07/08/25 07/08/25 History
tablet,extended release 24 hr
Review of Systems
-
History Source: Patient
All other systems: Negative unless noted
Physical Exam
Vital Signs
Temp Pulse Resp BP Pulse Ox
97.9 F 105 18 168/104 95
07/08/25 07:20 07/08/25 07:20 07/08/25 07:20 07/08/25 07:20 07/08/25 07:20
Lab Results
07/08/25 02:52
07/08/25 02:52
Troponin I 0.460 ng/ml H* 07/08/25 08:40
Nlt-C-Nwezknsxhmv Pept 1260 pg/ml 07/07/25 21:50
Physical Exam
General: Well Developed, Well Nourished and No Apparent Distress
HEENT: Normocephalic, Anicteric and Moist Mucous Membranes
Respiratory: Clear and Non Labored Respirations
Cardiac: S1/S2 and Irregular Rhythm
Musculoskeletal: No Clubbing, No Cyanosis and Edema
Skin: Warm and Dry
Neuro: AO x 3 and Nonfocal/Grossly Intact
Psych: Calm
Impression / Plan
-
PCP: Dr. Bhat
Application Integration Engineer: Dr. Albert Harrison ([facility])
Impression:
Presented with dizziness, unsteady gait, pounding heart
HTN urgency
Elevated troponin
Acute on chronic HFpEF
Permanent atrial fibrillation
HTN
Hypothyroidism
Nuclear stress test 2020: No evidence of ischemia.
Echo 10/04/2024: EF 60-65%, mild MR, moderate MD, moderate to severe TR
Echo 07/08/2025: Study completed, report pending.
Plan:
-Presented with dizziness, unsteady gait, and pounding heart beat. Admitted with hypertensive urgency and acute heart failure.
-Diuresing with IV lasix 40mg BID. Per prior OP cardiology note, had recommended she take diuretic but patient had refused.
-Creat stable at 0.8. Follow w/ diuresis.
-Follow daily weights, I&Os. Weight 141 lbs 07/08.
-K stable at 4.6. Na 128. Continue to follow w/ diuresis.
-Echo 09/2024 w/ preserved EF, moderate to severe TR. Had discussed TVR as OP, but plan was to follow at the time.
-Repeat echo today completed, await official report. Prelim w/ reduced EF.
-Remains in permanent atrial fibrillation.
-Per OP note, has not been complaint with OAC as OP.
-Troponin elevation noted, peak 0.546, trending down thereafter. Continue IV heparin for now.
-No chest pain currently. Would likely plan on [facility] this admission following diuresis. Possibly Friday, 07/11.
-Continue aspirin 81mg daily.
-BP elevated significantly on arrival, remains elevated currently. On losartan 100mg daily and Toprol 50mg BID. Will increase toprol to 100mg BID and follow w/ diuresis.
-Given dizziness/unsteady gait w/ significant HTN, Head CT checked in ER. No acute intracranial abnormalities noted. As she has permanent atrial fibrillation and has been noncompliant with Eliquis, would consider brain MRI to assess for CVA.
-LDL 116. On Lipitor 40mg daily, new this admission.
-Hgb A1c 6.3%.
-Requested and reviewed prior cardiology records.
HPI: Yoko is an 80 year old female with PMH of permanent atrial fibrillation, hypertension, and hypothyroidism who presented to [facility] ER for evaluation after she had an episode of lightheadedness/unsteady gait earlier in the day. She then noted
pounding in her chest and checked her BP and it was significantly elevated. She came to ER for evaluation and was noted to be significantly hypertensive and possibly in some heart failure. In ER, troponin was mildly elevated at 0.75 and trended up
to 0.546. She has been chest pain free, but describes feeling as though her blood pressure is elevated with pounding in her chest. No shortness of breath, but does have some LE edema. No weakness/vision changes. Head CT without acute intracranial
abnormality. Chest xray showed evidence of increased venous pressures. In rate controlled atrial fibrillation on EKG. She was started on IV lasix and admitted for further workup and cardiology consulted for evaluation.
Data Reviewed
-
EKG: Tracing Personally Visualized and interpreted
Radiology: Report Reviewed by me
CT Scan: Report Reviewed by me
Labs: Labs Reviewed by me
Old Records: Requested and Reviewed
[2025-07-08] MEDS: APRESOLINE 5 MG IV (11:53)
--- NOTE | 2025-07-08 13:19 | W.PN.UPDATE ---
Update Note
Progress Note Update
nstemi
hep gtt
asa statin
bb
ischemic eval with [facility] on Friday
acute hfref, new, nyha class iii
iv diuretics
monitor uop
dialy weight
follow renal function
keep k >4
keep mg >2
tele monitor
permanent afib
bb
hep gtt
hypontremia
likely related to volume overload
fluid restrict
expect to improve with diuretics
hypothyrodisim
continue levothyroxine
--- NOTE | 2025-07-08 14:04 | CM ---
CM following re: discharge planning.
Reviewed pt's chart, met with pt.
Pt is an 80 year old female, admitted with primary dx of Acute HF.
Pt reports she was born and grew up in [place], resides with son and his family in a 2SH, 1 step to enter. Pt reports her and another son , emotional support offered and provided. Pt described herself as independent in all areas
[employer]. No DME, VN or SNF history.
D/C plan: home with no needs anticipated vs cardiac outpatient rehab if indicated
CM will follow with discharge plan updates as hospitalization progresses
[2025-07-08] MEDS: LASIX IV (16:08)
[2025-07-08 16:11] LABS: APTT 91.2 Sec (23.4-35.0)
[2025-07-08] MEDS: LIPITOR 40 MG PO (18:04)
[2025-07-08] MEDS: TOPROL XL 100 MG PO (21:10)
[2025-07-09 03:19] VITALS: BP 104/60
[2025-07-09] MEDS: HEPARIN 25000 UNITS/250 ML IV (05:23)
[2025-07-09] MEDS: SYNTHROID 25 MCG PO ×2 (05:30→13:40)
[2025-07-09 06:00] VITALS: BMI 25.6
[2025-07-09 07:10] LABS: Hematocrit 35.3 % (37.0-47.0); Hemoglobin 12.2 g/dL (12.0-16.0); Mean Corp Hgb Conc. 34.6 g/dL (33.0-37.0); Mean Corpuscular Volume 81.5 fL (81.0-99.0); Platelet Count 189 10^3/uL (130-400); Red Cell Dist. Width 13.3 % (11.5-14.5)
[2025-07-09 07:17] LABS: APTT 97.4 Sec (23.4-35.0)
[2025-07-09 07:36] LABS: Blood Urea Nitrogen 28 mg/dl (7-17); Calcium 8.9 mg/dl (8.4-10.2); Carbon Dioxide 28 mmol/L (22-30); Chloride 92 mmol/L (98-107); Estimated Creatinine Clearance 35 ml/min; Glucose 90 mg/dl (70-99); Potassium 3.9 mmol/L (3.5-5.1); Sodium 124 mmol/L (135-145); eGFR 56.95
[2025-07-09 07:47] VITALS: BP 99/60
[2025-07-09] MEDS: LASIX 40 MG IV (08:46)
[2025-07-09] MEDS: LOW STRENGTH ASPIRIN 81 MG PO (08:46)
[2025-07-09] MEDS: COZAAR PO (08:49)
[2025-07-09] MEDS: TOPROL XL PO (08:49)
--- NOTE | 2025-07-09 11:14 | W.PN.CARDCBS ---
Today's Communication / Plan
-
Continue IV diuresis, monitoring intake, output, weight, renal function
Heparin drip
Dizziness workup per primary service
Tentative left heart catheterization 07/11/2025
Impression / Plan
-
PCP: Dr. hBat
Bead Wrapper: Dr. Albert Harrison ([facility])
Impression:
Presented with dizziness, unsteady gait, pounding heart, improved
HTN urgency, improved
Elevated troponin, peak 0.546
Acute on chronic Heart Failure, newly reduced LVEF
- Prior EF perserved at [facility]; repeat 07/08 EF 30%
Permanent atrial fibrillation
HTN
Hypothyroidism
Nuclear stress test 2020: No evidence of ischemia.
Echo 10/04/2024: EF 60-65%, mild MR, moderate MS, moderate to severe TR
Echo 07/08/2025: EF 33% global hypokinesis with akinesis of the septum, moderate to severe TR with PASP 44 mmHg assuming RAP of 8 mmHg
Plan:
-Presented with dizziness, unsteady gait, and pounding heart beat. Admitted with hypertensive urgency and acute heart failure. This has improved.
-Diuresing with IV lasix 40mg BID. Per prior OP cardiology note, had recommended she take diuretic but patient had refused.
-Creat stable at 0.8. Follow w/ diuresis.
-Follow daily weights, I&Os. Weight 141 lbs 07/08, downtrending
-K stable at 4.6. Na 128. Continue to follow w/ diuresis.
�In rate control permanent atrial fibrillation previously prescribed oral anticoagulation however not taking; on heparin gtt. for NSTEMI and stroke risk reduction in the setting of AF
-No chest pain currently. Would likely plan on [facility] this admission following diuresis. Possibly Friday, 07/11.
-Continue aspirin 81mg daily.
-BP elevated significantly on arrival, improved on adjusted medical therapy. On losartan 100mg daily and Toprol 100 mg twice daily, tolerating at this time
-Given dizziness/unsteady gait w/ significant HTN, Head CT checked in ER. No acute intracranial abnormalities noted. As she has permanent atrial fibrillation and has been noncompliant with Eliquis, would consider brain MRI to assess for CVA, defer
to primary service.
-LDL 116. On Lipitor 40mg daily, new this admission.
-Hgb A1c 6.3%.
-Requested and reviewed prior cardiology records.
HPI: Yoko is an 80 year old female with PMH of permanent atrial fibrillation, hypertension, and hypothyroidism who presented to [facility] ER for evaluation after she had an episode of lightheadedness/unsteady gait earlier in the day. She then noted
pounding in her chest and checked her BP and it was significantly elevated. She came to ER for evaluation and was noted to be significantly hypertensive and possibly in some heart failure. In ER, troponin was mildly elevated at 0.75 and trended up
to 0.546. She has been chest pain free, but describes feeling as though her blood pressure is elevated with pounding in her chest. No shortness of breath, but does have some LE edema. No weakness/vision changes. Head CT without acute intracranial
abnormality. Chest xray showed evidence of increased venous pressures. In rate controlled atrial fibrillation on EKG. She was started on IV lasix and admitted for further workup and cardiology consulted for evaluation.
Progress Note - Bead Wrapper
Subjective
Date of Service: July 09, 2025
Patient seen and examined this morning. No acute events overnight. Patient resting comfortably in bed. Patient reports mild dizziness but improved overall. Denies chest pain, palpitations, shortness of breath, weakness. Telemetry shows AF.
Objective
Labs:
07/09/25 06:30
07/09/25 06:30
Labs
Hgb 12.2 g/dL (12.0-16.0) 07/09/25 06:30
Hct 35.3 % (37.0-47.0) L 07/09/25 06:30
Plt Count 189 10^3/uL (130-400) 07/09/25 06:30
APTT 97.4 Sec (23.4-35.0) H 07/09/25 06:30
Sodium 124 mmol/L (135-145) L 07/09/25 06:30
Potassium 3.9 mmol/L (3.5-5.1) 07/09/25 06:30
BUN 28 mg/dl (7-17) H 07/09/25 06:30
Creatinine 1.0 mg/dL (0.6-1.0) 07/09/25 06:30
Glucose 90 mg/dl (70-99) 07/09/25 06:30
Digoxin < 0.4 ng/ml (0.8-2.0) L 07/07/25 19:19
Troponins
07/07/25 07/07/25 07/08/25
19:19 21:50 02:52
Troponin I 0.075 H* 0.289 H* D 0.546 H* D
07/08/25 07/08/25
08:40 14:02
Troponin I 0.460 H* Cancelled
Vital Signs and I&O:
Vital Signs
Temp Pulse Resp BP Pulse Ox
97.9 F 79 12 99/60 96
07/09/25 07:47 07/09/25 07:47 07/09/25 07:47 07/09/25 08:49 07/09/25 07:47
Vital Signs
Temp Pulse Resp BP Pulse Ox
97.9 F 79 12 99/60 96
07/09/25 07:47 07/09/25 07:47 07/09/25 07:47 07/09/25 08:49 07/09/25 07:47
Intake & Output
07/07/25 07/08/25 07/09/25 07/10/25
06:59 06:59 06:59 06:59
Intake Total 1180 / 1180
Output Total 900 / 900 1900 / 1900
Balance -900 / -900 -720 / -720
Physical Exam
Physical Exam
GENERAL: no acute distress
EYE: sclera anicteric
NECK: Supple, no JVD, no carotid bruit appreciated
ENT: normal nose, moist mucosal membranes
CARDIAC: Irregularly irregular, +S1/S2, 2/6 systolic murmur; no rubs, or gallops
CHEST/PULMONARY: Normal effort, clear breath sounds
ABDOMEN: Soft, without focal tenderness or distention
NEUROLOGICAL: Alert and oriented x3
SKIN: Warm and dry, no rash
PSYCH: Normal and appropriate interaction.
[2025-07-09 11:19] VITALS: BP 122/68
--- NOTE | 2025-07-09 12:04 | W.PN.HOSP.TC ---
Today's Communication/Plan
-
Assessment / Plan
Assessment / Plan
NAD
Scleral Anicteric
MMM
No JVD
CTABL
RRR, S1/S2
Soft, NT, ND, BS+
Warm, Dry
AAOx3
Calm
nstemi
hep gtt
asa statin
bb
ischemic eval with [facility] on Wednesday 07/11
acute hfref, new, nyha class iii, ef 30%
iv diuretics - hold
monitor uop
daily weight
follow renal function
keep k >4
keep mg >2
tele monitor
permanent afib
bb
hep gtt
hyponatremia, downtrending, euvolemic on exam
lasix on hold
repeat bmp in the am
nephrology consulted
hypothyroidism
continue levothyroxine
Anticipated Discharge: > 48 hours
Subjective/Interval History
-
Date of Service: July 09, 2025
seen and exmianiedn. no new complaints. no acute overnight events
since admit 2.8l with a net neg of 720
Objective Data
-
Labs:
Laboratory Results
07/09/25
06:30
WBC 9.9
Hgb 12.2
Hct 35.3 L
Plt Count 189
APTT 97.4 H
Sodium 124 L
Potassium 3.9
Chloride 92 L
Carbon Dioxide 28
BUN 28 H
Creatinine 1.0
Glucose 90
Calcium 8.9
Vital Signs:
Vital Signs
Temp Pulse Resp BP Pulse Ox
97.7 F 80 16 122/68 97
07/09/25 11:19 07/09/25 11:19 07/09/25 11:19 07/09/25 11:19 07/09/25 11:19
I&O
07/08/25 07/09/25 07/10/25
06:59 06:59 06:59
Intake Total 1180 / 1180
Output Total 900 / 900 1900 / 1900
Balance -900 / -900 -720 / -720
--- NOTE | 2025-07-09 13:00 | W.CON.NEPH ---
Consultation
-
Date/Time Consultation Requested: 07/09/2025 12 PM
Date/Time Consultation Performed: 07/09/2025 1 PM
Requesting Provider: Dr. Whitaker
Performing Provider: Dr. Stauffer
Reason for Consultation: Hyponatremia
Medical History
-
Chief Complaint: Hypertension
History of Present Illness:
This is an 80-year-old female who has hypertension typically controlled on a multidrug regimen though she does not check her blood pressures at home. She did however have a primary care visit in the last month and says that her blood pressures were
okay. She has hypothyroidism on Synthroid therapy with dose recently adjusted because of increase of TSH level. She says that she takes 25 mcg daily except 50 mcg on Saturdays. She has atrial fibrillation on Eliquis for anticoagulation and
metoprolol for rate control. She been doing fairly well until last week when she had developed an upper respiratory infection with a fever at 1 point. With conservative treatment she did improve. On however she had a in the afternoon
began to feel lightheaded and weak. Her family checked blood pressures and noted that it was greater than 180 systolic because of persistent elevation she came to the emergency room. There was concern that she was in heart failure and was given
intravenous diuretics. She was admitted with a sodium level at 128 which is now fallen to 124. Prior sodium levels have been between 130 and 135.
Past Medical History
Permanent Atrial Fibrillation
Hypertension
Chronic Sinusitis
Varicose Veins
Hypothyroidism
Appendectomy
Sinus Surgery
Hip Hemiarthroplasty
Hyponatremia
Severe tricuspid regurgitation
Heart failure reduced ejection fraction
Social History
Tobacco: Non-Smoker
Alcohol: None
Family History
Family History: Not Pertinent
Allergies / Home Medications
Allergy/AdvReac Type Severity Reaction Status Date / Time
honey Allergy Swelling Verified 07/07/25 18:49
peach Allergy abdominal Verified 07/07/25 18:49
pain
pollen extracts Allergy congestion Verified 07/07/25 18:49
�Medication �Instructions �Recorded �Confirmed �Type
Magnesium 1 dose PO DAILY 10/25/21 07/07/25 History
Vitamin C: 1 tab PO DAILY 10/25/21 07/07/25 History
Vitamin D3 (cholecalciferol): 1 tab PO DAILY 10/25/21 07/07/25 History
Zinc 1 tab PO DAILY 10/25/21 07/07/25 History
apixaban 5 mg tablet (Eliquis) 5 mg PO BID 10/25/21 07/07/25 History
levothyroxine 25 mcg tablet 25 mcg PO DAILY 10/25/21 07/07/25 History
multivitamin 1 ea PO DAILY 10/25/21 07/07/25 History
biotin 5 mg tablet 5 mg PO DAILY 07/07/25 07/07/25 History
losartan 100 mg tablet 100 mg PO DAILY 07/08/25 07/08/25 History
metoprolol succinate 100 mg 100 mg PO HS 07/08/25 07/08/25 History
tablet,extended release 24 hr
Review of Systems
-
Currently she feels 'less alert'
No chest pain or shortness of breath. Lower extreme edema improved. No issues with urination
All other systems: Negative unless noted
Physical Exam
Vital Signs
Vital Signs
Temp Pulse Resp BP Pulse Ox
97.7 F 80 16 122/68 97
07/09/25 11:19 07/09/25 11:19 07/09/25 11:19 07/09/25 11:19 07/09/25 11:19
Lab Results
WBC 9.9 10^3/uL (4.8-10.8) 07/09/25 06:30
RBC 4.33 10^6/uL (4.20-5.40) 07/09/25 06:30
Hgb 12.2 g/dL (12.0-16.0) 07/09/25 06:30
Hct 35.3 % (37.0-47.0) L 07/09/25 06:30
Plt Count 189 10^3/uL (130-400) 07/09/25 06:30
Sodium 124 mmol/L (135-145) L 07/09/25 06:30
Potassium 3.9 mmol/L (3.5-5.1) 07/09/25 06:30
Chloride 92 mmol/L (98-107) L 07/09/25 06:30
Carbon Dioxide 28 mmol/L (22-30) 07/09/25 06:30
BUN 28 mg/dl (7-17) H 07/09/25 06:30
Creatinine 1.0 mg/dL (0.6-1.0) 07/09/25 06:30
eGFR 56.95 07/09/25 06:30
Glucose 90 mg/dl (70-99) 07/09/25 06:30
Calcium 8.9 mg/dl (8.4-10.2) 07/09/25 06:30
Gli-O-Qqiymlfhqbr Pept 1260 pg/ml 07/07/25 21:50
Albumin 4.3 g/dl (3.5-5.0) 07/07/25 19:19
Labs reviewed as provided by family
May 21, 2025 sodium 136, however prior trend over last 8 years majority of readings of sodium between 130 and 135
Physical Exam
Patient is awake alert oriented and in no distress. Mood and affect were pleasant, insight and judgment were good. Pupils are equal round and reactive to light, extraocular movements are intact, sclera were anicteric. Hearing was normal, ears and
nose are intact. Oropharynx was clear. Neck was supple with trachea midline and no thyromegaly. Heart was regular rate and rhythm without rubs. Lower extremities without edema. Lungs were clear to auscultation bilaterally and with normal
excursion. Abdomen was soft, nontender, with normal active bowel sounds, and no hepatosplenomegaly. Skin was without rash and with normal turgor.
Data Reviewed
-
Radiology: Image Personally Visualized and interpreted (Chest x-ray 07/07/2025 by reading vascular prominence cardiomegaly)
CT Scan: Report Reviewed by me (CT head 07/07/2025 no acute disease)
Medical Tests (Nuc Med, Echo etc): Image Personally Visualized and interpreted (EKG 07/07/2025 by my reading A-fib rapid ventricular rate IVCD) and Report Reviewed by me (Echo 06/30/2025 severe TR, EF 33%)
Labs: Labs Reviewed by me
Old Records: Reviewed
Assessment/Plan
-
Assessment
Hyponatremia acute on chronic
Hypertension not hypotension
Heart failure reduced ejection fraction new
Hyperlipidemia
Hypothyroidism
Atrial fibrillation
Elevated troponin
Plan
holding diuretics given hypotension
Check urine studies
Holding losartan and metoprolol given hypotension
Plan for cardiac catheterization Friday given new reduction of EF
I have adjusted Synthroid dosing for outpatient doses as reported by the patient
Secondary hypertensive workup ordered
Discussed with patient and family
[2025-07-09 15:42] VITALS: BP 114/55
[2025-07-09] MEDS: NSS 500 IV (16:06)
[2025-07-09] MEDS: LIPITOR 40 MG PO (17:05)
[2025-07-09 19:06] VITALS: BP 120/69
[2025-07-09] MEDS: TOPROL XL 100 MG PO (22:36)
[2025-07-09 23:40] VITALS: BP 105/51
[2025-07-10 03:09] VITALS: BP 124/65
[2025-07-10 06:00] VITALS: BMI 25.6
[2025-07-10] MEDS: SYNTHROID 25 MCG PO (06:01)
[2025-07-10 06:08] LABS: Hematocrit 37.7 % (37.0-47.0); Hemoglobin 12.4 g/dL (12.0-16.0); Mean Corp Hgb Conc. 32.9 g/dL (33.0-37.0); Mean Corpuscular Volume 83.0 fL (81.0-99.0); Platelet Count 216 10^3/uL (130-400); Red Cell Dist. Width 13.5 % (11.5-14.5)
[2025-07-10 06:20] LABS: APTT 78.6 Sec (23.4-35.0)
[2025-07-10 06:32] LABS: Blood Urea Nitrogen 24 mg/dl (7-17); Calcium 9.4 mg/dl (8.4-10.2); Carbon Dioxide 27 mmol/L (22-30); Chloride 101 mmol/L (98-107); Estimated Creatinine Clearance 44 ml/min; Glucose 93 mg/dl (70-99); Potassium 4.3 mmol/L (3.5-5.1); Sodium 131 mmol/L (135-145); eGFR > 60.00
[2025-07-10 07:45] VITALS: BP 140/64
[2025-07-10] MEDS: COZAAR 100 MG PO (07:57)
[2025-07-10] MEDS: TOPROL XL 100 MG PO ×2 (07:57→20:11)
[2025-07-10] MEDS: LOW STRENGTH ASPIRIN 81 MG PO (07:58)
--- NOTE | 2025-07-10 09:55 | W.PN.CARDCBS ---
Today's Communication / Plan
-
N.p.o. after midnight pending left heart catheterization 07/11/2025
Impression / Plan
-
PCP: Dr. Bhat
Therapy Manager: Dr. Albert Harrison ([facility])
Impression:
Presented with dizziness, unsteady gait, pounding heart, resolved
HTN urgency, improved
Elevated troponin, peak 0.546
Acute on chronic Heart Failure, newly reduced LVEF
- Prior EF perserved at [facility]; repeat 07/08 EF 30%
Permanent atrial fibrillation
HTN
Hypothyroidism
Nuclear stress test 2020: No evidence of ischemia.
Echo 10/04/2024: EF 60-65%, mild MR, moderate AR, moderate to severe TR
Echo 07/08/2025: EF 33% global hypokinesis with akinesis of the septum, moderate to severe TR with PASP 44 mmHg assuming RAP of 8 mmHg
Plan:
-Presented with dizziness, unsteady gait, and pounding heart beat. Admitted with hypertensive urgency and acute heart failure. This has improved/resolved.
-Diuresing with IV lasix 40mg BID. Per prior OP cardiology note, had recommended she take diuretic but patient had refused.
-Creat stable at 0.8. Follow w/ diuresis.
-Follow daily weights, I&Os. Weight 141 lbs 07/08, downtrending; continues to improve
-K stable at 4.6. Na 128. Continue to follow w/ diuresis; nephrology following for hyponatremia/secondary hypertension
�In rate control permanent atrial fibrillation previously prescribed oral anticoagulation however not taking; on heparin gtt. for NSTEMI and stroke risk reduction in the setting of AF
-No chest pain currently. Left heart catheterization 07/11/2025, n.p.o. after midnight.
-Continue aspirin 81mg daily.
-BP elevated significantly on arrival, improved on adjusted medical therapy. On losartan 100mg daily and Toprol 100 mg twice daily, tolerating at this time
-Given dizziness/unsteady gait w/ significant HTN, Head CT checked in ER. No acute intracranial abnormalities noted. As she has permanent atrial fibrillation and has been noncompliant with Eliquis, would consider brain MRI to assess for CVA, defer
to primary service.
-LDL 116. On Lipitor 40mg daily, new this admission.
-Hgb A1c 6.3%.
-Requested and reviewed prior cardiology records.
HPI: Yoko is an 80 year old female with PMH of permanent atrial fibrillation, hypertension, and hypothyroidism who presented to [facility] ER for evaluation after she had an episode of lightheadedness/unsteady gait earlier in the day. She then noted
pounding in her chest and checked her BP and it was significantly elevated. She came to ER for evaluation and was noted to be significantly hypertensive and possibly in some heart failure. In ER, troponin was mildly elevated at 0.75 and trended up
to 0.546. She has been chest pain free, but describes feeling as though her blood pressure is elevated with pounding in her chest. No shortness of breath, but does have some LE edema. No weakness/vision changes. Head CT without acute intracranial
abnormality. Chest xray showed evidence of increased venous pressures. In rate controlled atrial fibrillation on EKG. She was started on IV lasix and admitted for further workup and cardiology consulted for evaluation.
Progress Note - Therapy Manager
Subjective
Date of Service: July 10, 2025
Patient seen and examined this morning. No acute events overnight. Patient resting comfortably in bed. Denies chest pain, shortness of breath, dizziness.
Objective
Labs:
07/10/25 05:44
07/10/25 05:44
Labs
Hgb 12.4 g/dL (12.0-16.0) 07/10/25 05:44
Hct 37.7 % (37.0-47.0) 07/10/25 05:44
Plt Count 216 10^3/uL (130-400) 07/10/25 05:44
APTT 78.6 Sec (23.4-35.0) H 07/10/25 05:44
Sodium 131 mmol/L (135-145) L 07/10/25 05:44
Potassium 4.3 mmol/L (3.5-5.1) 07/10/25 05:44
BUN 24 mg/dl (7-17) H 07/10/25 05:44
Creatinine 0.8 mg/dL (0.6-1.0) 07/10/25 05:44
Glucose 93 mg/dl (70-99) 07/10/25 05:44
Digoxin < 0.4 ng/ml (0.8-2.0) L 07/07/25 19:19
Troponins
07/07/25 07/07/25 07/08/25
19:19 21:50 02:52
Troponin I 0.075 H* 0.289 H* D 0.546 H* D
07/08/25 07/08/25
08:40 14:02
Troponin I 0.460 H* Cancelled
Vital Signs and I&O:
Vital Signs
Temp Pulse Resp BP Pulse Ox
97.8 F 82 12 140/64 99
07/10/25 07:45 07/10/25 07:45 07/10/25 07:45 07/10/25 07:45 07/10/25 07:45
Vital Signs
Temp Pulse Resp BP Pulse Ox
97.8 F 82 12 140/64 99
07/10/25 07:45 07/10/25 07:45 07/10/25 07:45 07/10/25 07:45 07/10/25 07:45
Intake & Output
07/08/25 07/09/25 07/10/25 07/11/25
06:59 06:59 06:59 06:59
Intake Total 1180 / 1180 480 / 480
Output Total 900 / 900 1900 / 1900
Balance -900 / -900 -720 / -720 480 / 480
Physical Exam
Physical Exam
GENERAL: no acute distress
EYE: sclera anicteric
NECK: Supple, no JVD, no carotid bruit appreciated
ENT: normal nose, moist mucosal membranes
CARDIAC: Irregularly irregular, +S1/S2, 2/6 systolic murmur; no rubs, or gallops
CHEST/PULMONARY: Normal effort, clear breath sounds
ABDOMEN: Soft, without focal tenderness or distention
NEUROLOGICAL: Alert and oriented x3
SKIN: Warm and dry, no rash
PSYCH: Normal and appropriate interaction.
Telemetry shows AF
--- NOTE | 2025-07-10 10:45 | W.PN.NEPH.PH ---
Today's Communication / Plan
-
follow BMP
Assessment/Plan
-
Assessment
Hyponatremia acute on chronic
Hypertension not hypotension
Heart failure reduced ejection fraction new
Hyperlipidemia
Hypothyroidism
Atrial fibrillation
Elevated troponin
Plan
holding diuretics today
Check urine studies
restart losartan and metoprolol
Plan for cardiac catheterization Friday given new reduction of EF
Secondary hypertensive workup in progress
-
-
Date of Service: July 10, 2025
CC / HPI / ROS
-
Chief Complaint:
hyponatremia
History of Present Illness:
Na up to 131 with NSS
BP improved, high again
no supplemental O2
Review of Systems:
no CP/SOB
Labs
-
Labs:
WBC 10.5 10^3/uL (4.8-10.8) 07/10/25 05:44
RBC 4.54 10^6/uL (4.20-5.40) 07/10/25 05:44
Hgb 12.4 g/dL (12.0-16.0) 07/10/25 05:44
Hct 37.7 % (37.0-47.0) 07/10/25 05:44
Plt Count 216 10^3/uL (130-400) 07/10/25 05:44
Sodium 131 mmol/L (135-145) L 07/10/25 05:44
Potassium 4.3 mmol/L (3.5-5.1) 07/10/25 05:44
Chloride 101 mmol/L (98-107) 07/10/25 05:44
Carbon Dioxide 27 mmol/L (22-30) 07/10/25 05:44
BUN 24 mg/dl (7-17) H 07/10/25 05:44
Creatinine 0.8 mg/dL (0.6-1.0) 07/10/25 05:44
eGFR > 60.00 07/10/25 05:44
Glucose 93 mg/dl (70-99) 07/10/25 05:44
Calcium 9.4 mg/dl (8.4-10.2) 07/10/25 05:44
Cob-P-Excszgzmhnc Pept 1260 pg/ml 07/07/25 21:50
Albumin 4.3 g/dl (3.5-5.0) 07/07/25 19:19
Physical Exam
-
Vital Signs:
Vital Signs
Temp Pulse Resp BP Pulse Ox
97.8 F 82 12 140/64 99
07/10/25 07:45 07/10/25 07:45 07/10/25 07:45 07/10/25 07:45 07/10/25 07:45
Cardiovascular:: Regular rate and rhythm
Respiratory:: Bilateral: CTA
Lung Excursion:: Normal
Abdomen:: Nontender and Soft
Bowel Sounds:: Normal
Extremity Edema:: None: Bilateral:
[2025-07-10 11:09] VITALS: BP 114/60
--- NOTE | 2025-07-10 13:21 | W.PN.HOSP.TC ---
Today's Communication/Plan
-
Assessment / Plan
Assessment / Plan
NAD
Scleral Anicteric
MMM
No JVD
CTABL
RRR, S1/S2
Soft, NT, ND, BS+
Warm, Dry
AAOx3
Calm
nstemi
hep gtt
asa statin
bb
ischemic eval with [facility] on Wednesday 07/11
acute hfref, new, nyha class iii, ef 30%
iv diuretics - hold
monitor uop
daily weight
follow renal function
keep k >4
keep mg >2
tele monitor
permanent afib
bb
hep gtt
hyponatremia, downtrending, euvolemic on exam
lasix on hold
improved with ivf
repeat bmp in the am
nephrology following
hypothyroidism
continue levothyroxine
Anticipated Discharge: 24 - 48 hours
Subjective/Interval History
-
Date of Service: July 10, 2025
seen and exmained. no new complaitns. no acute overnight events
Objective Data
-
Labs:
Laboratory Results
07/10/25
05:44
WBC 10.5
Hgb 12.4
Hct 37.7
Plt Count 216
APTT 78.6 H
Sodium 131 L
Potassium 4.3
Chloride 101
Carbon Dioxide 27
BUN 24 H
Creatinine 0.8
Glucose 93
Calcium 9.4
Vital Signs:
Vital Signs
Temp Pulse Resp BP Pulse Ox
97.6 F 76 12 114/60 95
07/10/25 11:09 07/10/25 11:09 07/10/25 11:09 07/10/25 11:09 07/10/25 11:09
I&O
07/09/25 07/10/25 07/11/25
06:59 06:59 06:59
Intake Total 1180 / 1180 480 / 480
Output Total 1900 / 1900
Balance -720 / -720 480 / 480
[2025-07-10] MEDS: HEPARIN 25000 UNITS/250 ML IV (14:10)
[2025-07-10 15:26] VITALS: BP 115/56
[2025-07-10] MEDS: LIPITOR 40 MG PO (16:49)
[2025-07-10 19:00] VITALS: BP 114/50
[2025-07-10 23:00] VITALS: BP 115/56
[2025-07-11] VITALS (14 sets, daily range): BP systolic 91–143; BP diastolic 47–83; BMI 22.6
[2025-07-11] MEDS: SYNTHROID 25 MCG PO (05:22)
[2025-07-11 07:33] LABS: Hematocrit 34.8 % (37.0-47.0); Hemoglobin 12.2 g/dL (12.0-16.0); Mean Corp Hgb Conc. 35.1 g/dL (33.0-37.0); Mean Corpuscular Volume 82.7 fL (81.0-99.0); Platelet Count 198 10^3/uL (130-400); Red Cell Dist. Width 13.6 % (11.5-14.5)
[2025-07-11] MEDS: LOW STRENGTH ASPIRIN 81 MG PO (07:42)
[2025-07-11] MEDS: TOPROL XL 100 MG PO ×2 (07:43→22:27)
[2025-07-11 07:44] LABS: APTT 84.4 Sec (23.4-35.0)
[2025-07-11] MEDS: COZAAR 100 MG PO (07:45)
--- NOTE | 2025-07-11 07:56 | ITS.CL.CATH ---
Final Operations Technician - Catheterization
Cardiac Catheterization
Procedure Report:
LEFT AND RIGHT HEART CATHETERIZATION
Date of Procedure: July 11, 2025
Referring: Braydon Torres.
PROCEDURES:
1. Left heart catheterization, coronary angiogram.
2. Moderate sedation.
3. Right heart catheterization.
INDICATION: New cardiomyoapthy and HF, NSTEMI
ACCESS: Right radial artery, 6Fr. sheath, under US guidance.
Right brachial artery, 6Fr. sheath, under US guidance.
HEMODYNAMICS : (mmHg)
RA (m) : 21
RV (s/d,m) : 47/10, 18
PA (s/d, m) : 49/23, 34
PCWP (m) : 26
PA saturation: 69.5% on room air
AO saturation: 96.4% on room air
RA saturation: 69.6% on room air
Cardiac Output : 3.55 L/min by Hawk calculation
Cardiac Index : 2.29 L/min/m-2 by Hawk calculation
Systemic vascular resistance: 1759 dsc^(-5)
Pulmonary vascular resistance: 2.26 doll unit
AO (s/d) : 154/76
LVEDP : 22
No significant gradient across the aortic valve to suggest aortic stenosis.
CORONARY FINDINGS
Dominance: Right
Left Main Trunk (LMT): Large caliber vessel that gives rise to the LAD and LCx branches and is free of angiographic disease.
Left Anterior Descending Artery (LAD): Large caliber vessel that gives off 1 major diagonal branch as it courses along the anterior inter-ventricular groove before wrapping around the cardiac apex. The LAD and its branches are free of angiographic
disease.
Left Circumflex Artery (LCx): Large caliber vessel that gives off 1 major obtuse marginal (OM) branch as it courses along the atrio-ventricular (AV) groove. The LCx and its branches are free of angiographic disease.
Right Coronary Artery (RCA): Large caliber dominant vessel that gives rise to the posterior descending artery (RPDA) and postero-lateral ventricular (RPLV) branches distally. The RCA and its branches are free of angiographic disease.
SEDATION: 27 minutes of procedural sedation was utilized. IV Midazolam and IV Fentanyl were administered. An independent medical billing assistant was present to assist with and help manage the patient's level of consciousness and physiologic status.
RADIATION SUMMARY: Fluoro Time (min): 4.0, Dose (mGy): 95.3, DAP (Gy.cm2) : 6.42
Closure Device: There were no immediate intra-procedural complications. The sheath was pulled in the chemical laboratory scientist and a vascular-band applied to the right wrist for radial artery hemostasis using the patent hemostasis technique.
CONCLUSIONS
1. No obstructive coronary artery disease, presumed hypertensive cardiomyopathy.
2. Significantly elevated right and left-sided filling pressures with normal cardiac output.
RECOMMENDATIONS
1. Wean radial band per protocol. Monitor right hand perfusion and for bleeding from the radial site following removal of the vascular-band following trans-radial access.
2. Continue aggressive medical therapy and risk factor modification for secondary CAD prevention. Aggressive IV diuresis and blood pressure management with goal blood pressure of less than 130/80. Optimization of GDMT for nonischemic cardiomyopathy
3. Hydrate with normal saline to mitigate the risk of contrast-induced acute kidney injury.
4. Referral for outpatient cardiac rehab.
5. Outpatient cardiology follow-up.
Tiffani Encarnacion MD, FAC, [facility]
[2025-07-11 09:52] LABS: Blood Urea Nitrogen 19 mg/dl (7-17); Calcium 9.4 mg/dl (8.4-10.2); Carbon Dioxide 26 mmol/L (22-30); Chloride 102 mmol/L (98-107); Estimated Creatinine Clearance 44 ml/min; Glucose 95 mg/dl (70-99); Potassium 4.6 mmol/L (3.5-5.1); Sodium 132 mmol/L (135-145); eGFR > 60.00
--- NOTE | 2025-07-11 14:17 | W.PN.HOSP.TC ---
Today's Communication/Plan
-
hep gtt
for [facility] today
Assessment / Plan
Assessment / Plan
NAD
Scleral Anicteric
MMM
No JVD
CTABL
RRR, S1/S2
Soft, NT, ND, BS+
Warm, Dry
AAOx3
Calm
nstemi
hep gtt
asa statin
bb
ischemic eval with [facility] on Wednesday 07/11
acute hfref, new, nyha class iii, ef 30%
iv diuretics - hold
monitor uop
daily weight
follow renal function
keep k >4
keep mg >2
tele monitor
permanent afib
bb
hep gtt
hyponatremia, downtrending, euvolemic on exam
lasix on hold
improved with ivf
repeat bmp in the am
nephrology following
hypothyroidism
continue levothyroxine
Anticipated Discharge: 24 - 48 hours
Subjective/Interval History
-
Date of Service: July 11, 2025
Seen and examined. No new complaints. No acute overnight events.
Objective Data
-
Labs:
Laboratory Results
07/11/25 07/11/25
06:43 08:18
WBC 8.3
Hgb 12.2
Hct 34.8 L
Plt Count 198
APTT 84.4 H
Sodium Cancelled 132 L
Potassium Cancelled 4.6
Chloride Cancelled 102
Carbon Dioxide Cancelled 26
BUN Cancelled 19 H
Creatinine Cancelled 0.8
Glucose Cancelled 95
Calcium Cancelled 9.4
Vital Signs:
Vital Signs
Temp Pulse Resp BP Pulse Ox
97.4 F 81 12 112/61 97
07/11/25 11:03 07/11/25 11:03 07/11/25 11:03 07/11/25 11:03 07/11/25 11:03
I&O
07/10/25 07/11/25 07/12/25
06:59 06:59 06:59
Intake Total 480 / 480 1140 / 1140
Balance 480 / 480 1140 / 1140
--- NOTE | 2025-07-11 14:58 | W.PN.NEPH.PH ---
Today's Communication / Plan
-
follow labs with FR
Assessment/Plan
-
Assessment
Hyponatremia acute on chronic
Hypertension not hypotension
Heart failure reduced ejection fraction new
Hyperlipidemia
Hypothyroidism
Atrial fibrillation
Elevated troponin
Plan
holding diuretics today still
stable hyponatremia, U osm 163 and na 14 both are low
need FR to continue
Bp stable on home meds ARB and BB
she lost sig wt with diuresis
for [facility] today for new reduced EF
Secondary hypertensive workup in progress, renal duplex neg
labs in am
-
-
Date of Service: July 11, 2025
CC / HPI / ROS
-
Chief Complaint:
hyponatremia
History of Present Illness:
Na up to 132
BP improved and stable with meds
no supplemental O2
Review of Systems:
no CP/SOB
no dizziness
Labs
-
Labs:
WBC 8.3 10^3/uL (4.8-10.8) 07/11/25 06:43
RBC 4.21 10^6/uL (4.20-5.40) 07/11/25 06:43
Hgb 12.2 g/dL (12.0-16.0) 07/11/25 06:43
Hct 34.8 % (37.0-47.0) L 07/11/25 06:43
Plt Count 198 10^3/uL (130-400) 07/11/25 06:43
Sodium 132 mmol/L (135-145) L 07/11/25 08:18
Potassium 4.6 mmol/L (3.5-5.1) 07/11/25 08:18
Chloride 102 mmol/L (98-107) 07/11/25 08:18
Carbon Dioxide 26 mmol/L (22-30) 07/11/25 08:18
BUN 19 mg/dl (7-17) H 07/11/25 08:18
Creatinine 0.8 mg/dL (0.6-1.0) 07/11/25 08:18
eGFR > 60.00 07/11/25 08:18
Glucose 95 mg/dl (70-99) 07/11/25 08:18
Calcium 9.4 mg/dl (8.4-10.2) 07/11/25 08:18
Mdt-Q-Wqyknyffhyc Pept 1260 pg/ml 07/07/25 21:50
Albumin 4.3 g/dl (3.5-5.0) 07/07/25 19:19
Physical Exam
-
Vital Signs:
Vital Signs
Temp Pulse Resp BP Pulse Ox
97.4 F 81 12 112/61 97
07/11/25 11:03 07/11/25 11:03 07/11/25 11:03 07/11/25 11:03 07/11/25 11:03
Cardiovascular:: Regular rate and rhythm
Respiratory:: Bilateral: CTA
Lung Excursion:: Normal
Abdomen:: Nontender and Soft
Extremity Edema:: None: Bilateral:
Fisher Catheter: No
--- NOTE | 2025-07-11 15:04 | PN.CDI ---
CDI
- -
CDI:
Physician Documentation Request
Admit Date: 07/08/25 01:46
Dear Doctor Sherman,
Please review the following and provide your response in the progress notes.
Clinical Indicators:
The diagnosis of E coli positive UC was included in the signed 07/07 UC
- 07/07 urine culture positive on 07/10 for E coli
Please indicate in your progress notes if you are in agreement that the above diagnosis is valid for this patient:
____ - UTI is a valid diagnosis (Please include it in your progress notes)
____ - UTI is not a valid diagnosis for this patient
____ - UTI is not yet confirmed but remains a suspected condition
____ - Other (please specify)
____ - Unable to determine
Use of terms such as suspected, likely, concern for, or probable are acceptable for a diagnosis that is being evaluated, monitored or treated as if it exists and can be coded in the inpatient setting, when documented at the time of discharge.
Thank you,
Elina Nicholson RN
CDI Specialist
Please use your independent medical judgment in providing your response.
--- NOTE | 2025-07-11 15:22 | CM ---
Heparin drip, IV/Lasix on hold for today, L heart cath planned today. Discharge POC: TBD.
[2025-07-11] MEDS: LIPITOR 40 MG PO (17:24)
[2025-07-12] VITALS (13 sets, daily range): BP systolic 90–141; BP diastolic 42–84; BMI 24.5
--- NOTE | 2025-07-12 03:39 | PTCARENOTE ---
Patient post cath. Radial band off. Right radial and right Brachial dressings intact. No bleeding, no hematoma noted. Patient ambulated to bathroom with supervision. Reviewed post cath care. Patient sleeping quietly at this time.
[2025-07-12] MEDS: SYNTHROID 25 MCG PO (04:57)
[2025-07-12 05:29] LABS: Hematocrit 35.4 % (37.0-47.0); Hemoglobin 11.9 g/dL (12.0-16.0); Mean Corp Hgb Conc. 33.6 g/dL (33.0-37.0); Mean Corpuscular Volume 84.1 fL (81.0-99.0); Platelet Count 190 10^3/uL (130-400); Red Cell Dist. Width 13.8 % (11.5-14.5)
[2025-07-12 05:54] LABS: Blood Urea Nitrogen 28 mg/dl (7-17); Calcium 9.0 mg/dl (8.4-10.2); Carbon Dioxide 26 mmol/L (22-30); Chloride 100 mmol/L (98-107); Estimated Creatinine Clearance 32 ml/min; Glucose 86 mg/dl (70-99); Potassium 4.4 mmol/L (3.5-5.1); Sodium 131 mmol/L (135-145); eGFR 50.80
[2025-07-12] MEDS: TOPROL XL PO (08:30)
[2025-07-12] MEDS: LOW STRENGTH ASPIRIN 81 MG PO (08:30)
[2025-07-12] MEDS: COZAAR 100 MG PO (08:30)
[2025-07-12] MEDS: TOPROL XL 100 MG PO ×2 (10:09→21:12)
[2025-07-12] MEDS: ELIQUIS 5 MG PO ×2 (10:36→21:12)
--- NOTE | 2025-07-12 11:58 | W.PN.CARDCBS ---
Addendum entered and electronically signed by Jose Koroma MD 07/12/25 14:12:
I saw and examined the patient.
The FINISHED HARDWARE ERECTOR or PA's note was reviewed and I agree with the note.
Comment: General: Well developed, well nourished in NAD.
Neck: Supple, no JVD, HJR, carotids +2 B/L, no bruits bilaterally.
Heart: Non displaced PMI, RRR, no murmurs, No S3, S4, no rubs.
Lungs: Clear to auscultation bilaterally, no wheeze, rhonchi, rubs bilaterally,
normal expiratory phase.
Extremities: No clubbing, cyanosis or edema bilaterally.
Neuro: Grossly nonfocal, awake, alert and oriented x3.
Continue to hold Lasix with mildly worsening creatinine of 1.1. Will stop aspirin and resume Eliquis. Trying to increase GDMT meds for cardiomyopathy but blood pressure may limit. Will need eventual repeat echocardiogram as an outpatient.
Original Note:
Today's Communication / Plan
-
follow Cr. holding lasix
stop asa. eliquis resumed
uptitration of GDMT/anti-HTNs as able
will need reeval of EF by echo as OP
Impression / Plan
-
PCP: Dr. Bhat
Internet Retailer: Dr. Albert Harrison ([facility])
Impression:
Presented with dizziness, unsteady gait, pounding heart, resolved
HTN urgency, improved
Elevated troponin, peak 0.546
Acute on chronic Heart Failure, newly reduced LVEF
- Prior EF perserved at [facility], [place]; repeat 07/08 EF 30%
Permanent atrial fibrillation
HTN
Hypothyroidism
Nuclear stress test 2020: No evidence of ischemia.
Echo 10/04/2024: EF 60-65%, mild MR, moderate TX, moderate to severe TR
Echo 07/08/2025: EF 33% global hypokinesis with akinesis of the septum, moderate to severe TR with PASP 44 mmHg assuming RAP of 8 mmHg
Plan:
-Presented with dizziness, unsteady gait, and pounding heart beat. Admitted with hypertensive urgency and acute heart failure. This has improved/resolved.
-trop peaked at 0.546 and echo showed new CM EF 33%.
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 suspected HTN CM
-continue toprol 100mg BID, cozaar 50mg daily (was on 100mg daily prior to admission, uptitrate as able). would consider addition of aldactone and SGLT2 inhibitor pending Cr and no cost issues.
-patient being diuresed. Cr bumped to 1.1 today. holding lasix. suspect weight inaccurate as up 10 pounds overnight
-nephro following. Na 131 on 07/12.
-remains in rate controlled permanent afib on review of tele overnight. eliquis has been resumed post cath, reportedly cost issues prior to admission, will have CM assess. will stop asa
-LDL 116. On Lipitor 40mg daily, new this admission.
-Hgb A1c 6.3%.
-OP follow up with Dr. Harrison. will need repeat echo in 3 months to reeval EF.
HPI: Yoko is an 80 year old female with PMH of permanent atrial fibrillation, hypertension, and hypothyroidism who presented to [facility] ER for evaluation after she had an episode of lightheadedness/unsteady gait earlier in the day. She then noted
pounding in her chest and checked her BP and it was significantly elevated. She came to ER for evaluation and was noted to be significantly hypertensive and possibly in some heart failure. In ER, troponin was mildly elevated at 0.75 and trended up
to 0.546. She has been chest pain free, but describes feeling as though her blood pressure is elevated with pounding in her chest. No shortness of breath, but does have some LE edema. No weakness/vision changes. Head CT without acute intracranial
abnormality. Chest xray showed evidence of increased venous pressures. In rate controlled atrial fibrillation on EKG. She was started on IV lasix and admitted for further workup and cardiology consulted for evaluation.
Progress Note - Internet Retailer
Subjective
Date of Service: July 12, 2025
no issues overnight
Objective
Labs:
07/12/25 04:55
07/12/25 04:55
Labs
Hgb 11.9 g/dL (12.0-16.0) L 07/12/25 04:55
Hct 35.4 % (37.0-47.0) L 07/12/25 04:55
Plt Count 190 10^3/uL (130-400) 07/12/25 04:55
APTT 84.4 Sec (23.4-35.0) H 07/11/25 06:43
Sodium 131 mmol/L (135-145) L 07/12/25 04:55
Potassium 4.4 mmol/L (3.5-5.1) 07/12/25 04:55
BUN 28 mg/dl (7-17) H 07/12/25 04:55
Creatinine 1.1 mg/dL (0.6-1.0) H 07/12/25 04:55
Glucose 86 mg/dl (70-99) 07/12/25 04:55
Digoxin < 0.4 ng/ml (0.8-2.0) L 07/07/25 19:19
Vital Signs and I&O:
Vital Signs
Temp Pulse Resp BP Pulse Ox
97.7 F 63 18 114/52 97
07/12/25 11:43 07/12/25 11:00 07/12/25 11:43 07/12/25 10:09 07/12/25 11:43
Vital Signs
Temp Pulse Resp BP Pulse Ox
97.7 F 63 18 114/52 97
07/12/25 11:43 07/12/25 11:00 07/12/25 11:43 07/12/25 10:09 07/12/25 11:43
Intake & Output
07/10/25 07/11/25 07/12/25 07/13/25
07:59 07:59 07:59 07:59
Intake Total 480 / 480 1140 / 1140 300 / 300
Output Total 300 / 300
Balance 480 / 480 1140 / 1140 -300 / -300 300 / 300
Physical Exam
Physical Exam
GEN: No distress, awake, alert, oriented x3
HEENT: supple, anicteric, mmm, eomi
LUNGS: CTA B/L, no wheezes/rales
CV: Irreg, S1/S2, no murmur
ABD: soft, BS+, NT/ND
EXT: No cyanosis, clubbing, edema
NEURO: Gross non-focal
SKIN: Warm, pink, dry. No rash
--- NOTE | 2025-07-12 12:05 | W.PN.NEPH.PH ---
Today's Communication / Plan
-
see plan
Assessment/Plan
-
Assessment
MAYELA
Hyponatremia acute on chronic
Hypertension not hypotension
Heart failure reduced ejection fraction new
Hyperlipidemia
Hypothyroidism
Atrial fibrillation
Elevated troponin
Plan
noted [facility] report no obst CAD, PCWP 26
mild MAYELA-cr up at 1.1 today , monitor trend
likely resume diuresis lasix 20daily in next 1-2days
stable hyponatremia, cont FR
Bp soft on home meds ARB and BB
may need to titrate down ARB 50mg
wt up but do not think is accurate
Secondary hypertensive workup in progress, renal duplex neg
labs in am
-
-
Date of Service: July 12, 2025
CC / HPI / ROS
-
Chief Complaint:
hyponatremia
History of Present Illness:
Na down to 131
BP soft end with meds
no supplemental O2
Review of Systems:
no CP/SOB
no dizziness
Labs
-
Labs:
WBC 8.4 10^3/uL (4.8-10.8) 07/12/25 04:55
RBC 4.21 10^6/uL (4.20-5.40) 07/12/25 04:55
Hgb 11.9 g/dL (12.0-16.0) L 07/12/25 04:55
Hct 35.4 % (37.0-47.0) L 07/12/25 04:55
Plt Count 190 10^3/uL (130-400) 07/12/25 04:55
Sodium 131 mmol/L (135-145) L 07/12/25 04:55
Potassium 4.4 mmol/L (3.5-5.1) 07/12/25 04:55
Chloride 100 mmol/L (98-107) 07/12/25 04:55
Carbon Dioxide 26 mmol/L (22-30) 07/12/25 04:55
BUN 28 mg/dl (7-17) H 07/12/25 04:55
Creatinine 1.1 mg/dL (0.6-1.0) H 07/12/25 04:55
eGFR 50.80 07/12/25 04:55
Glucose 86 mg/dl (70-99) 07/12/25 04:55
Calcium 9.0 mg/dl (8.4-10.2) 07/12/25 04:55
Npo-B-Xueyjohhiei Pept 1260 pg/ml 07/07/25 21:50
Albumin 4.3 g/dl (3.5-5.0) 07/07/25 19:19
Physical Exam
-
Vital Signs:
Vital Signs
Temp Pulse Resp BP Pulse Ox
97.7 F 63 18 114/52 97
07/12/25 11:43 07/12/25 11:00 07/12/25 11:43 07/12/25 10:09 07/12/25 11:43
Cardiovascular:: Regular rate and rhythm
Respiratory:: Bilateral: Rales (at bases)
Lung Excursion:: Normal
Abdomen:: Nontender and Soft
Extremity Edema:: None: Bilateral:
Fisher Catheter: No
--- NOTE | 2025-07-12 13:29 | CM ---
spoke to pt in room, she lives with her son in a 2 story home with 1 step to enter. she denies any dme's. plan is for dc to home when medically stable.
--- NOTE | 2025-07-12 15:51 | W.PN.HOSP.TC ---
Addendum entered and electronically signed by Scott Whitaker MD 07/12/25 15:59:
asymtpoamtic bacteruria
no a utino atb
Original Note:
Today's Communication/Plan
-
Assessment / Plan
Assessment / Plan
NAD
Scleral Anicteric
MMM
No JVD
CTABL
RRR, S1/S2
Soft, NT, ND, BS+
Warm, Dry
AAOx3
Calm
nstemi
statin
bb
lhc - without obstruction
acute hfref, new, nyha class iii, ef 30%, nicm, likely hypertensive induced
iv diuretics - hold
monitor uop
daily weight
follow renal function
keep k >4
keep mg >2
tele monitor
krystyna
related to contrast
neph following
encourage po intak
permanent afib
bb
eliquis
hyponatremia, downtrending, euvolemic on exam
lasix on hold
improved with ivf
repeat bmp in the am
nephrology following
hypothyroidism
continue levothyroxine
Anticipated Discharge: Within 24 hours
Subjective/Interval History
-
Date of Service: July 12, 2025
seen and examined. no new complaints. no acute overnighr events
Objective Data
-
Labs:
Laboratory Results
07/12/25
04:55
WBC 8.4
Hgb 11.9 L
Hct 35.4 L
Plt Count 190
Sodium 131 L
Potassium 4.4
Chloride 100
Carbon Dioxide 26
BUN 28 H
Creatinine 1.1 H
Glucose 86
Calcium 9.0
Vital Signs:
Vital Signs
Temp Pulse Resp BP Pulse Ox
97.6 F 66 16 115/58 99
07/12/25 15:00 07/12/25 12:15 07/12/25 15:00 07/12/25 11:35 07/12/25 15:00
I&O
07/11/25 07/12/25 07/13/25
06:59 06:59 06:59
Intake Total 1140 / 1140 300 / 300
Output Total 300 / 300
Balance 1140 / 1140 -300 / -300 300 / 300
[2025-07-12] MEDS: LIPITOR 40 MG PO (17:30)
[2025-07-12 18:54] LABS: Aldosterone/Renin Activ Ratio 2.7 ratio (<=25.0); Renin Activity Results 2.3 ng/mL/hr
--- NOTE | 2025-07-13 00:41 | PTCARENOTE ---
Pt. has no complaints chest pain/discomfort, VSS, A-fib rate 70's on the monitor. Right radial and brachial cath site dressings CDI without hematoma, pulses normal. Oriented x 3, assist x 1 to use BR. Pt. resting quietly.
[2025-07-13 04:03] VITALS: BP 119/64
[2025-07-13 04:24] VITALS: BMI 24.7
[2025-07-13] MEDS: SYNTHROID 25 MCG PO (04:55)
[2025-07-13 05:12] LABS: Blood Urea Nitrogen 30 mg/dl (7-17); Calcium 9.5 mg/dl (8.4-10.2); Carbon Dioxide 25 mmol/L (22-30); Chloride 101 mmol/L (98-107); Estimated Creatinine Clearance 35 ml/min; Glucose 93 mg/dl (70-99); Hematocrit 35.7 % (37.0-47.0); Hemoglobin 12.0 g/dL (12.0-16.0); Mean Corp Hgb Conc. 33.6 g/dL (33.0-37.0); Mean Corpuscular Volume 84.0 fL (81.0-99.0); Platelet Count 182 10^3/uL (130-400); Potassium 4.7 mmol/L (3.5-5.1); Red Cell Dist. Width 13.8 % (11.5-14.5); Sodium 131 mmol/L (135-145); eGFR 56.95
--- NOTE | 2025-07-13 08:11 | PTCARENOTE ---
Patient resting in bed this morning, inquiring about her morning lab results, anxious to go home.
[2025-07-13 08:46] VITALS: BP 118/50
[2025-07-13] MEDS: ELIQUIS 5 MG PO (08:50)
[2025-07-13] MEDS: COZAAR 50 MG PO (08:50)
[2025-07-13] MEDS: TOPROL XL 100 MG PO (08:50)
[2025-07-13] MEDS: FLUSH (NSS) 2 FLUSH IV (08:51)
[2025-07-13 10:59] VITALS: BP 142/74
--- NOTE | 2025-07-13 11:28 | PTCARENOTE ---
Patient is ok for discharge, her DIL cannot come for her until 3:00. Patient is very concerned about her inability to continue taking eliquis with the expense. Case management notified and in to speak with her.
--- NOTE | 2025-07-13 11:38 | CM ---
spoke to pt in room, she told me that she was getting her eliquis samples thru her cardiol at [facility]. she went to fill thru her part D at the pharmacy and it was too expensive. we disucssed that her income is low and she may qualify for Pacenet-
application given to pt. she said her melyssa in law will help her fill out. she said shewill go back to her cardiol for samples until the pacenet is aproved.
--- NOTE | 2025-07-13 11:58 | W.PN.NEPH.PH ---
Today's Communication / Plan
-
dc
Assessment/Plan
-
Assessment
MAYELA
Hyponatremia acute on chronic
Hypertension not hypotension
Heart failure reduced ejection fraction new
Hyperlipidemia
Hypothyroidism
Atrial fibrillation
Elevated troponin
Plan
follow BMP
back on losartan
for dc
2HTN w/u pending
-
-
Date of Service: July 13, 2025
CC / HPI / ROS
-
Chief Complaint:
hyponatremia
History of Present Illness:
Na 131 stable
BP stable on meds
no supplemental O2
Review of Systems:
no CP/SOB
no dizziness
Labs
-
Labs:
WBC 11.0 10^3/uL (4.8-10.8) H 07/13/25 04:14
RBC 4.25 10^6/uL (4.20-5.40) 07/13/25 04:14
Hgb 12.0 g/dL (12.0-16.0) 07/13/25 04:14
Hct 35.7 % (37.0-47.0) L 07/13/25 04:14
Plt Count 182 10^3/uL (130-400) 07/13/25 04:14
Sodium 131 mmol/L (135-145) L 07/13/25 04:14
Potassium 4.7 mmol/L (3.5-5.1) 07/13/25 04:14
Chloride 101 mmol/L (98-107) 07/13/25 04:14
Carbon Dioxide 25 mmol/L (22-30) 07/13/25 04:14
BUN 30 mg/dl (7-17) H 07/13/25 04:14
Creatinine 1.0 mg/dL (0.6-1.0) 07/13/25 04:14
eGFR 56.95 07/13/25 04:14
Glucose 93 mg/dl (70-99) 07/13/25 04:14
Calcium 9.5 mg/dl (8.4-10.2) 07/13/25 04:14
Yez-A-Lqcgtmhokdh Pept 1260 pg/ml 07/07/25 21:50
Albumin 4.3 g/dl (3.5-5.0) 07/07/25 19:19
Physical Exam
-
Vital Signs:
Vital Signs
Temp Pulse Resp BP Pulse Ox
97.5 F 75 18 118/50 98
07/13/25 11:00 07/13/25 08:50 07/13/25 11:00 07/13/25 08:50 07/13/25 11:00
Cardiovascular:: Regular rate and rhythm
Respiratory:: Bilateral: CTA
Lung Excursion:: Normal
Abdomen:: Nontender and Soft
Bowel Sounds:: Normal
Extremity Edema:: None: Bilateral:
--- NOTE | 2025-07-13 13:04 | W.DCSUMMARY ---
Discharge Summary
Discharge Data
Date of Admission: 07/08/25
Date of Discharge: 07/13/25
-
Pending Results: No
Hospital Course
80y F with PMH significant for A-Fib, hypertension and hypothyroidism
Presented with complaints of dizziness unsteadiness and elevated blood pressure. Was found to have elevated troponins which peaked at 0.54 with an elevated BNP of 1260. Chest x-ray consistent with volume overload. Was started on IV heparin drip
along with IV diuretics. 2D echocardiogram obtained demonstrating estimated EF of 33% with global hypokinesis/akinesis. Within 2 days had close to 2 to 3 L of fluid diuresed. This affected the sodium causing hyponatremia. Nephrology was
consulted and started on IV fluids with improvement in sodium. Cardiology maintained on heparin drip until left heart catheterization which did not show obstructive disease and it is believed new onset HFrEF with a EF of 33% was secondary to
hypertensive cardiomyopathy. Therefore nephrology additionally recommended secondary hypertension workup which labs remain pending and will need continued outpatient cardiology PCP and nephrology follow-up. Additionally, should be noted kidney
function did slightly increase after receiving contrast from left heart catheterization for which his monitor
2d echo
SUMMARY
1. LV systolic function is moderately reduced with estimated LVEF 33% by Arevalo's method. Global hypokinesis with akinesis of the septum.
2. Right ventricular size and systolic function are within normal limits.
3. Moderate to severe tricuspid regurgitation. Estimated pulmonary artery pressure of 44 mmHg assuming a right atrial pressure of 8 mmHg.
4. No prior study for comparison.
[facility]
CONCLUSIONS
1. No obstructive coronary artery disease, presumed hypertensive cardiomyopathy.
2. Significantly elevated right and left-sided filling pressures with normal cardiac output.
Renal artery duplex
IMPRESSION: Technically difficult study and somewhat limited due to overlying bowel gas and patient inability to breath-hold for certain portions of the examination. From the velocity measurements obtained there is no significant renal artery
stenosis identified bilaterally. A left kidney cyst is identified. Incidental finding of a cyst in the right hepatic lobe measuring 2.5 cm x 2.2 cm x 2.2 cm.
Seen and examined on the day of discharge which was 07/13/2025. No new complaints. No acute overnight events
NAD
Scleral Anicteric
MMM
No JVD
CTABL
RRR, S1/S2
Soft, NT, ND, BS+
Warm, Dry
AAOx3
Calm
More than 30 minutes spent in discharge including
Final examination of the patient
Summarizing hospital stay
Instructions for continuing care to all relevant caregivers
Preparation of discharge records, prescriptions, and referral forms
Total time spent (in minutes): 33mins
Discharge Plan
-
Patient Disposition: Home (Routine Discharge)
Discharge Diagnosis/Procedures: Acute HFrEF
Uncontrolled hypertension
Hyponatremia
Diet: As tolerated, Low Cholesterol, 2 Gram Sodium and No added salt
Specialty Instructions: Weigh Daily- Call MD for wt gain/loss 3 lbs overnight/5 lbs in 1 week
Activity Restrictions/Additional Instructions:
Presented with complaints of dizziness unsteadiness and elevated blood pressure. Was found to have elevated troponins which peaked at 0.54 with an elevated BNP of 1260. Chest x-ray consistent with volume overload. Was started on IV heparin drip
along with IV diuretics. 2D echocardiogram obtained demonstrating estimated EF of 33% with global hypokinesis/akinesis. Within 2 days had close to 2 to 3 L of fluid diuresed. This affected the sodium causing hyponatremia. Nephrology was
consulted and started on IV fluids with improvement in sodium. Cardiology maintained on heparin drip until left heart catheterization which did not show obstructive disease and it is believed new onset HFrEF with a EF of 33% was secondary to
hypertensive cardiomyopathy. Therefore nephrology additionally recommended secondary hypertension workup which labs remain pending and will need continued outpatient cardiology PCP and nephrology follow-up. Additionally, should be noted kidney
function did slightly increase after receiving contrast from left heart catheterization for which his monitor
2d echo
SUMMARY
1. LV systolic function is moderately reduced with estimated LVEF 33% by Arevalo's method. Global hypokinesis with akinesis of the septum.
2. Right ventricular size and systolic function are within normal limits.
3. Moderate to severe tricuspid regurgitation. Estimated pulmonary artery pressure of 44 mmHg assuming a right atrial pressure of 8 mmHg.
4. No prior study for comparison.
[facility]
CONCLUSIONS
1. No obstructive coronary artery disease, presumed hypertensive cardiomyopathy.
2. Significantly elevated right and left-sided filling pressures with normal cardiac output.
Renal artery duplex
IMPRESSION: Technically difficult study and somewhat limited due to overlying bowel gas and patient inability to breath-hold for certain portions of the examination. From the velocity measurements obtained there is no significant renal artery
stenosis identified bilaterally. A left kidney cyst is identified. Incidental finding of a cyst in the right hepatic lobe measuring 2.5 cm x 2.2 cm x 2.2 cm.
Instructions: *PCP/Other Insurance Actuary Heart Failure Instructions
Referrals:
Arsen Deras DO [Active, Cardiology] - in two to four weeks
Jennifer Bhat MD [Family Provider, Internal Medicine]
Prescriptions:
New
losartan 50 mg Tablet
50 mg PO DAILY Qty: 30 0RF
atorvastatin 40 mg Tablet
40 mg PO QPM Qty: 30 0RF
metoprolol succinate 100 mg Tablet Extended Release 24 Hr
100 mg PO BID Qty: 60 0RF
nitroglycerin 0.4 mg Tablet, Sublingual
0.4 mg sublingual [id number] PRN (Reason: Chest Pain) Qty: 30 0RF
Continued
levothyroxine 25 MCG tablet
25 mcg PO DAILY
Eliquis 5 MG tablet
5 mg PO BID
multivitamin 1 EACH tablet
1 ea PO DAILY
Magnesium
1 dose PO DAILY
Vitamin C:
1 tab PO DAILY
Vitamin D3 (cholecalciferol):
1 tab PO DAILY
Zinc
1 tab PO DAILY
biotin 5 mg Tablet
5 mg PO DAILY
Discontinued
metoprolol succinate 100 mg tablet extended release 24 hr
100 mg PO HS
losartan 100 mg tablet
100 mg PO DAILY
Discharge Orders:
Discharge Patient (As Directed); Ordered 07/13/25
Ordered By: Scott Whitaker
Care Plan Goals
Care Plan Goals:
Problem: Readiness for enhanced knowledge related to diagnosis and treatment plan
Goal: Understand your diagnosis and treatment plan needs, including medications if applicable.
Instructions: Know your diagnosis, underlying causes and treatment plan options, including medications if applicable. Consult with your health care team to learn about your diagnosis and treatment plan, including medications if applicable.
Discharge Date and Time
Print Language: HEBREW
--- NOTE | 2025-07-13 13:41 | W.PN.CARDCBS ---
Addendum entered and electronically signed by Jose Koroma MD 07/13/25 15:54:
I saw and examined the patient.
The SLAB STRIPPER or PA's note was reviewed and I agree with the note.
Comment: General: Well developed, well nourished in NAD.
Neck: Supple, no JVD, HJR, carotids +2 B/L, no bruits bilaterally.
Heart: Non displaced PMI, RRR, no murmurs, No S3, S4, no rubs.
Lungs: Clear to auscultation bilaterally, no wheeze, rhonchi, rubs bilaterally,
normal expiratory phase.
Extremities: No clubbing, cyanosis or edema bilaterally.
Neuro: Grossly nonfocal, awake, alert and oriented x3.
Stable cardiology status for discharge. Will arrange follow-up visit. Discussed with primary service
Original Note:
Today's Communication / Plan
-
toprol 100mg BID
cozaar 50mg daily
lasix 20mg daily
BMP/proBNP in 1 week
follow up with Dr. Harrison upon DC
Impression / Plan
-
PCP: Dr. Bhat
Archeologist: Dr. Albert Harrison ([facility])
Impression:
Presented with dizziness, unsteady gait, pounding heart, resolved
HTN urgency, improved
Elevated troponin, peak 0.546, nonischemic myocardial injury as cath with nonobstructive disease
Acute on chronic Heart Failure, newly reduced LVEF
- Prior EF perserved at [facility]; repeat 07/08 EF 30%
NICM
Permanent atrial fibrillation
HTN
Hypothyroidism
Nuclear stress test 2020: No evidence of ischemia.
Echo 10/04/2024: EF 60-65%, mild MR, moderate RI, moderate to severe TR
Echo 07/08/2025: EF 33% global hypokinesis with akinesis of the septum, moderate to severe TR with PASP 44 mmHg assuming RAP of 8 mmHg
Plan:
-Presented with dizziness, unsteady gait, and pounding heart beat. Admitted with hypertensive urgency and acute heart failure. This has improved/resolved.
-trop peaked at 0.546 and echo showed new CM EF 33%.
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 suspected HTN CM
-continue toprol 100mg BID, cozaar 50mg daily (was on 100mg daily prior to admission, uptitrate as able). would consider addition of aldactone and SGLT2 inhibitor pending Cr and no cost issues.
- Patient was diuresed earlier in admission however then had creatinine which bumped to 1.1. Lasix presently on hold and creatinine is improving, 1.0 on 07/13. Discussed with nephrology and plan for discharge on p.o. Lasix 20 mg daily
-Repeat BMP/proBNP in 1 week with results to Dr. Harrison
-remains in rate controlled permanent afib on review of tele overnight. eliquis has been resumed post cath. asa stopped as cath with nonobstructive CAD
-LDL 116. On Lipitor 40mg daily, new this admission.
-Hgb A1c 6.3%.
-OP follow up with Dr. Harrison. Called his office and they are working on a follow-up appointment. If they do not get back to me before patient is discharged, they will call patient with follow-up appointment. Will need repeat echo in 3 months to
reeval EF.
- Discussed with patient following her daily weights and blood pressures. Discussed calling primary textile converter for uptitration of Cozaar if systolic blood pressures noted to be persistently greater than 140. Conversely if she notices low blood
pressures, or decreasing weights with dizziness, she should call as Lasix may need to be stopped/held.
- Discussed with nursing
HPI: Yoko is an 80 year old female with PMH of permanent atrial fibrillation, hypertension, and hypothyroidism who presented to [facility] ER for evaluation after she had an episode of lightheadedness/unsteady gait earlier in the day. She then noted
pounding in her chest and checked her BP and it was significantly elevated. She came to ER for evaluation and was noted to be significantly hypertensive and possibly in some heart failure. In ER, troponin was mildly elevated at 0.75 and trended up
to 0.546. She has been chest pain free, but describes feeling as though her blood pressure is elevated with pounding in her chest. No shortness of breath, but does have some LE edema. No weakness/vision changes. Head CT without acute intracranial
abnormality. Chest xray showed evidence of increased venous pressures. In rate controlled atrial fibrillation on EKG. She was started on IV lasix and admitted for further workup and cardiology consulted for evaluation.
Progress Note - Archeologist
Subjective
Date of Service: July 13, 2025
Patient without complaints
Objective
Labs:
07/13/25 04:14
07/13/25 04:14
Labs
Hgb 12.0 g/dL (12.0-16.0) 07/13/25 04:14
Hct 35.7 % (37.0-47.0) L 07/13/25 04:14
Plt Count 182 10^3/uL (130-400) 07/13/25 04:14
APTT 84.4 Sec (23.4-35.0) H 07/11/25 06:43
Sodium 131 mmol/L (135-145) L 07/13/25 04:14
Potassium 4.7 mmol/L (3.5-5.1) 07/13/25 04:14
BUN 30 mg/dl (7-17) H 07/13/25 04:14
Creatinine 1.0 mg/dL (0.6-1.0) 07/13/25 04:14
Glucose 93 mg/dl (70-99) 07/13/25 04:14
Digoxin < 0.4 ng/ml (0.8-2.0) L 07/07/25 19:19
Vital Signs and I&O:
Vital Signs
Temp Pulse Resp BP Pulse Ox
97.5 F 92 18 142/74 98
07/13/25 11:00 07/13/25 12:00 07/13/25 11:00 07/13/25 10:59 07/13/25 11:00
Vital Signs
Temp Pulse Resp BP Pulse Ox
97.5 F 92 18 142/74 98
07/13/25 11:00 07/13/25 12:00 07/13/25 11:00 07/13/25 10:59 07/13/25 11:00
Intake & Output
07/11/25 07/12/25 07/13/25 07/14/25
07:59 07:59 07:59 07:59
Intake Total 1140 / 1140 780 / 780 400 / 400
Output Total 300 / 300 600 / 600
Balance 1140 / 1140 -300 / -300 180 / 180 400 / 400
Physical Exam
Physical Exam
GEN: No distress, awake, alert, oriented x3
HEENT: supple, anicteric, mmm, eomi
LUNGS: CTA B/L, no wheezes/rales
CV: Irreg, S1/S2, no murmur
ABD: soft, BS+, NT/ND
EXT: No cyanosis, clubbing, edema
NEURO: Gross non-focal
SKIN: Warm, pink, dry. No rash
--- NOTE | 2025-07-13 16:42 | PTCARENOTE ---
The patient's [id number] in to drive the patient home. Reviewed discharge instructions, HF education, follow up appointments and prescriptions with the patient and her daughter and they state their understanding. Patient discharged home.
== END 2025-07-13 16:33 | disposition home or self-care (01) | DRG 286 ==
LOC: IVU 01:46
PROVIDERS: Internal Medicine Interventional Cardiology; ADMITTING PHYSICIAN Hospitalist; ATTENDING PHYSICIAN Hospitalist; CONSULT PHYSICIAN Specialist; EMERGENCY PHYSICIAN Emergency Medicine; FAMILY PHYSICIAN Internal Medicine; OTHER PHYSICIAN Internal Medicine Cardiovascular Disease
PROC: 4A023N6 Measurement of Cardiac Sampling and Pressure, Right Heart, Percutaneous Approach (ICD-10-PCS; 2025-07-11)
PROC: B2111ZZ Fluoroscopy of Multiple Coronary Arteries using Low Osmolar Contrast (ICD-10-PCS; 2025-07-11)
DX: I11.0 Hypertensive heart disease with heart failure (principal); I50.43 Acute on chronic combined systolic (congestive) and diastolic (congestive) heart failure; E87.1 Hypo-osmolality and hyponatremia; I48.21 Permanent atrial fibrillation; N17.9 Acute kidney failure, unspecified; N39.0 Urinary tract infection, site not specified; E03.9 Hypothyroidism, unspecified; J32.9 Chronic sinusitis, unspecified; I83.90 Asymptomatic varicose veins of unspecified lower extremity; Z79.899 Other long term (current) drug therapy; Z79.890 Hormone replacement therapy; Z79.01 Long term (current) use of anticoagulants; E78.5 Hyperlipidemia, unspecified; I07.1 Rheumatic tricuspid insufficiency; I43 Cardiomyopathy in diseases classified elsewhere; Z91.148 Patient's other noncompliance with medication regimen for other reason; Z11.52 Encounter for screening for COVID-19
CPT/HCPCS: 70450; 71046; 80048; 80053; 80061; 80162; 81003; 81015; 82088; 82384; 82570; 83036; 83835; 83880; 83935; 84244; 84300; 84439; 84443; 84484; 85025; 85027; 85730; 87077; 87086; 87186; 87502; 87811; 93005; 93306; 93460; 93975; 96374; 99152; 99153; 99285; C1769; C1894; Q9967